=== PATIENT | female | born 1970 | race African-American/Black ===

== ENCOUNTER 2016-09-10 11:32 | Inpatient (IN) | payer MEDICARE, MEDICAID, OTHER ==
[~2016-09-10] VITALS: Ht 157.5 cm; Wt 50.4 kg
[2016-09-10] VITALS (13 sets, daily range): BP systolic 81–110; BP diastolic 58–79; PULSE 81–148; RESP 16–20; TEMP 98–103; O2SAT 98–100
[~2016-09-10 11:32] MED LIST: CALTRATE PO; PRIN5TAB PO; RITO100 PO; SELZENTRY PO; TRUV200300 PO; [UNRECOGNIZED DRUG - OTHER] PO
[2016-09-10] MEDS ORDERED: SODIUM CHLOR 0.9% 1000 ML INJ 1,000 ML IV SCH (12:09)
[2016-09-10] MEDS ORDERED: PROP10TA6 PO (12:10)
[2016-09-10] MEDS ORDERED: CALCTAB33 PO (12:10)
[2016-09-10] MEDS ORDERED: FERR325T PO (12:10)
[2016-09-10] MEDS ORDERED: [UNRECOGNIZED DRUG - OTHER] PO (12:10)
[2016-09-10] MEDS ORDERED: ONDANSETRON HCL 4 MG/2 ML VIAL IVP ONE (12:15)
[2016-09-10] MEDS ORDERED: SODIUM CHLORIDE 0.9% FLUSH 5 ML FLUSH IVF PRN (12:15)
[2016-09-10] MEDS ORDERED: MORPHINE SULFATE 4 MG/ML INJ IV PUSH ONE (12:15)
[2016-09-10 12:27] LABS: AUTOMATED NEUTROPHIL # 13.5 TH/MM3 (1.8-7.7); EOSINOPHIL % 0.3 % (0.0-4.0); LYMPH % 7.4 % (9.0-44.0); LYMPHOCYTE # 1.1 TH/MM3 (1.0-4.8); MEAN CELL VOLUME 88.2 FL (80.0-100.0); MEAN CORPUSCULAR HEMOGLOBIN 29.2 PG (27.0-34.0); MEAN CORPUSCULAR HGB CONC 33.1 % (32.0-36.0); NEUT % 86.3 % (16.0-70.0); PLATELET COUNT 143 TH/MM3 (150-450); RED BLOOD COUNT 3.74 MIL/MM3 (4.00-5.30); RED CELL DISTRIBUTION WIDTH 13.4 % (11.6-17.2); WHITE BLOOD COUNT 15.5 TH/MM3 (4.0-11.0)
[2016-09-10 12:28] LABS: HEMO FLAGS DIFF FINAL
[2016-09-10] MEDS ORDERED: KETOROLAC TROMETHAMINE 30 MG/ML (IVP) VIAL IV PUSH ONE (12:30)
[2016-09-10] MEDS ORDERED: SODIUM CHLOR 0.9% 1000 ML INJ 1,000 ML IV ONE (12:30)
[2016-09-10] MEDS ORDERED: ACETAMINOPHEN 650 MG/20.3 ML UDC PO ONE (12:30)
[2016-09-10 12:37] LABS: CHLORIDE 97 MEQ/L (98-107); SODIUM (NA) 131 MEQ/L (136-145)
[2016-09-10 12:41] LABS: ANION GAP 12 MEQ/L (5-15); APTT (PATIENT) 31.9 SEC (24.3-30.1); BICARBONATE 22.3 MEQ/L (21.0-32.0); BLOOD UREA NITROGEN 39 MG/DL (7-18); PROTHROMBIN TIME - PATIENT 11.2 SEC (9.8-11.6)
[2016-09-10 12:42] LABS: POTASSIUM 4.6 MEQ/L (3.5-5.1)
[2016-09-10 12:43] LABS: ALT (GPT) 75 U/L (10-53); AST (GOT) 72 U/L (15-37)
[2016-09-10 12:44] LABS: GLOMERULAR FILTRATION RATE 25 ML/MIN (>89)
[2016-09-10 12:45] LABS: TOTAL BILIRUBIN ADULT 2.1 MG/DL (0.2-1.0)
[2016-09-10] MEDS ORDERED: AZTREONAM INJ 1,000 MG in SODIUM CHLORIDE 0.9% INJ 100 ML IV ONE (12:45)
[2016-09-10] MEDS ORDERED: VANCOMYCIN INJ 1,000 MG in SODIUM CHLOR 0.9% 250 ML INJ 250 ML IV ONE (12:45)
[2016-09-10 12:46] LABS: ALKALINE PHOSPHATASE 152 U/L (45-117)
--- NOTE | 2016-09-10 13:32 | PD ---
HPI Chief Complaint: GI Complaint Time Seen by Provider: 12:02 Travel History International Travel<30 days: No Contact w/Intl Traveler<30days: No Traveled to known affect area: No History of Present Illness HPI 45yo F with PMH of HIV on HAART but unknown CD 4 count presents to the ED with c /o left sided abdominal pain that radiates to the back. +Dark urine. +Fever. Had vomiting yesterday. +Nonbloody diarrhea. Denies any chest pain, sob, focal weakness or numbness, hematuria, dysuria. PFSH Past Medical History Arthritis: No Asthma: No Autoimmune Disease: Yes (HIV) Blood Disorders: No Anxiety: Yes Depression: Yes Heart Rhythm Problems: No Cancer: No Cardiovascular Problems: Yes High Cholesterol: No Chemotherapy: No Chest Pain: No Congestive Heart Failure: No COPD: No Cerebrovascular Accident: No Diabetes: No Diminished Hearing: No Endocrine: No GERD: No Glaucoma: No Genitourinary: No Headaches: Yes Hepatitis: No Hiatal Hernia: No Hypertension: No Immune Disorder: No Kidney Stones: No Musculoskeletal: Yes Neurologic: Yes Psychiatric: No Reproductive: No Respiratory: Yes Migraines: Yes Myocardial Infarction: No Radiation Therapy: No Renal Failure: No Seizures: No Sickle Cell Disease: No Sleep Apnea: No Thyroid Disease: No Ulcer: No Tetanus Vaccination: > 5 Years Influenza Vaccination: Yes ?: Not Past Surgical History Abdominal Surgery: No AICD: No Appendectomy: No Arteriovenous Shunt: No Cardiac Surgery: No Section: Yes Cholecystectomy: No Ear Surgery: No Endocrine Surgery: No Eye Surgery: No Genitourinary Surgery: No Gynecologic Surgery: Yes (c section) Insulin Pump: No Joint Replacement: No Oral Surgery: No Pacemaker: No Thoracic Surgery: No Other Surgery: Yes (c section) Social History Alcohol Use: No Tobacco Use: Yes Substance Use: No Allergies-Medications (Allergen,Severity, Reaction): Coded Allergies: Penicillin (Verified Allergy, Severe, Hives, 09/10/16) Sulfa (Verified Allergy, Severe, HIVES, 09/10/16) Vancomycin (Verified Allergy, Severe, Itching, 09/10/16) Reported Meds & Prescriptions Reported Meds & Active Scripts Active Reported [Trivmeq] 1 Tab PO BID Ferrous Sulfate 325 Mg Tab 325 Mg PO DAILY Propranolol (Propranolol HCl) 10 Mg Tab 10 Mg PO DAILY Calcium 600+D Plus Minerals (Calcium Carbonate-Vitamin D W/Minerals) 600-400 Mg- Unit Tab 1 Tab PO BID Review of Systems Except as stated in HPI: all other systems reviewed are Neg Physical Exam Narrative GENERAL: 45yo F in moderate distress. SKIN: Warm and dry. HEAD: Atraumatic. Normocephalic. EYES: Pupils equal and round. No scleral icterus. No injection or drainage. ENT: No nasal bleeding or discharge. Mucous membranes pink and moist. NECK: Trachea midline. No JVD. CARDIOVASCULAR: Regular rate and rhythm. No murmur appreciated. RESPIRATORY: No accessory muscle use. Clear to auscultation. Breath sounds equal bilaterally. GASTROINTESTINAL: Abdomen soft, +TTP diffusely. Nondistended. MUSCULOSKELETAL: No obvious deformities. No clubbing. No cyanosis. No edema. BACK: +CVA tenderness bilaterally. NEUROLOGICAL: Awake and alert. No obvious cranial nerve deficits. Motor grossly within normal limits. Normal speech. PSYCHIATRIC: Appropriate mood and affect; insight and judgment normal. Data Data Last Documented VS Vital Signs Date Time Temp Pulse Resp B/P Pulse Ox O2 Delivery O2 Flow Rate FiO2 09/10/16 14:40 98.9 90 18 101/65 99 Room Air Orders Complete Blood Count With Diff (09/10/16 12:09) Comprehensive Metabolic Panel (09/10/16 12:09) Lipase (09/10/16 12:09) Prothrombin Time / Inr (Pt) (09/10/16 12:09) Act Partial Throm Time (Ptt) (09/10/16 12:09) Urinalysis - C+S If Indicated (09/10/16 12:09) Iv Access Insert/Monitor (09/10/16 12:09) Ecg Monitoring (09/10/16 12:09) Oximetry (09/10/16 12:09) Morphine Inj (Morphine Inj) (09/10/16 12:15) Ondansetron Inj (Zofran Inj) (09/10/16 12:15) Sodium Chlor 0.9% 1000 Ml Inj (Ns 1000 M (09/10/16 12:09) Sodium Chloride 0.9% Flush (Ns Flush) (09/10/16 12:15) Ed Urine Pregnancytest Poc (09/10/16 12:09) Lactic Acid Sepsis Protocol (09/10/16 12:20) Blood Culture (09/10/16 12:20) Sodium Chlor 0.9% 1000 Ml Inj (Ns 1000 M (09/10/16 12:30) Ketorolac Inj (Toradol Inj) (09/10/16 12:30) Acetaminophen 650 Mg/20 Ml Liq (Tylenol (09/10/16 12:30) Vancomycin Inj (Vancomycin Inj) (09/10/16 12:45) Aztreonam Inj (Azactam Inj) (09/10/16 12:45) Ct Abd/Pel W/O Iv Contrast (09/10/16 ) Bhcg Screen Qualitative (09/10/16 12:15) Diphenhydramine Inj (Benadryl Inj) (09/10/16 14:00) Urine Culture (09/10/16 14:35) Admit Order (Ed Use Only) (09/10/16 15:08) Labs Laboratory Tests Test 09/10/16 09/10/16 09/10/16 12:15 13:15 14:35 White Blood Count 15.5 TH/MM3 Red Blood Count 3.74 MIL/MM3 Hemoglobin 10.9 GM/DL Hematocrit 33.0 % Mean Corpuscular Volume 88.2 FL Mean Corpuscular Hemoglobin 29.2 PG Mean Corpuscular Hemoglobin 33.1 % Concent Red Cell Distribution Width 13.4 % Platelet Count 143 TH/MM3 Mean Platelet Volume 9.3 FL Neutrophils (%) (Auto) 86.3 % Lymphocytes (%) (Auto) 7.4 % Monocytes (%) (Auto) 6.0 % Eosinophils (%) (Auto) 0.3 % Basophils (%) (Auto) 0.0 % Neutrophils # (Auto) 13.5 TH/MM3 Lymphocytes # (Auto) 1.1 TH/MM3 Monocytes # (Auto) 0.9 TH/MM3 Eosinophils # (Auto) 0.0 TH/MM3 Basophils # (Auto) 0.0 TH/MM3 CBC Comment DIFF FINAL Differential Comment Prothrombin Time 11.2 SEC Prothromb Time International 1.0 RATIO Ratio Activated Partial 31.9 SEC Thromboplast Time Sodium Level 131 MEQ/L Potassium Level 4.6 MEQ/L Chloride Level 97 MEQ/L Carbon Dioxide Level 22.3 MEQ/L Anion Gap 12 MEQ/L Blood Urea Nitrogen 39 MG/DL Creatinine 2.50 MG/DL Estimat Glomerular Filtration 25 ML/MIN Rate Random Glucose 164 MG/DL Calcium Level 8.3 MG/DL Total Bilirubin 2.1 MG/DL Aspartate Amino Transf 72 U/L (AST/SGOT) Alanine Aminotransferase 75 U/L (ALT/SGPT) Alkaline Phosphatase 152 U/L Total Protein 9.0 GM/DL Albumin 2.8 GM/DL Lipase 164 U/L Beta HCG, Qualitative LESS THAN 1 MIU/ML Lactic Acid Level 1.7 mmol/L Urine Collection Type CLEAN CATCH Urine Color YELLOW Urine Turbidity MOD Urine pH 6.0 Urine Specific [place] 1.012 Urine Protein 100 mg/dL Urine Glucose (UA) NEG mg/dL Urine Ketones NEG mg/dL Urine Occult Blood MOD Urine Nitrite POS Urine Bilirubin NEG Urine Leukocyte Esterase LARGE Urine RBC 25-49 /hpf Urine WBC INNUM /hpf Urine Squamous Epithelial > 8 /hpf Cells Urine Bacteria FEW /hpf Microscopic Urinalysis Comment CULTURE INDICATED Urine Collection Time 14:35 MDM Medical Decision Making Medical Screen Exam Complete: Yes Emergency Medical Condition: Yes Differential Diagnosis Cholangitis vs. pyelonephritis vs. nephrolithiasis vs. colitis Narrative Course 45yo F with HIV here with fever and tachycardia and abdominal pain. Pt also with diarrhea but has not vomited since yesterday. Pt states pain is mainly left sided but diffusely tender on abdominal exam. Labs reviewed, leukocytosis at 15.5. H/H low at 10.9/33 but pt has had low H/H before. LFTs elevated with elevated bilirubin. Lipase normal. Lactic acid 1.7. Creatinine elevated at 2.50 from baseline of 0.87 from 2011. Pt given NS IVF x3 and empirically given vancomycin and aztreonam. Pt started having itching half way through vancomycin so it was stopped and diphenhydramine 50mg IV given. Pt reevaluated at bedside and denies any sob, chest pain, tongue or lip swelling. No urticaria. Pt given toradol and zofran which helped with the pain. UA showed large leukocyte and positive nitrite. CTa/p showed mild hydronephrotic changes around right kidney with medullary nephrocalcinosis. Exam suggest recent stone passage versus pyelonephritis. Pt reevaluated at bedside and feels better. Pt is no longer febrile and HR has decreased to 90bpm. Will admit pt for sepsis secondary to pyelonephritis with acute kidney injury. Discussed with [facility] hospitalist and admitted to Dr. Kay. Critical Care Narrative Aggregate critical care time was 40 minutes. Time to perform other separately billable procedures was not included in the critical care time. My time did not include minutes spent treating any other patients simultaneously or on activities that did not directly contribute to the patient's treatment. The services I provided to this patient were to treat and/or prevent clinically significant deterioration that could result in: cardiovascular collapse or . I provided critical care services requiring my management, as noted below: Chart data review, documentation time, medication orders and management, vital sign assessments/reviewing monitor data, ordering and reviewing lab tests, ordering and interpreting/reviewing x-rays and diagnostic studies, care of the patient and discussion of the patient with the admitting physicians. Sepsis Criteria SIRS Criteria (2 or more): Temp > 100.9 or < 96.8, Heart rate over 90, WBC > 44778, < 4000 or > 10% bands Sepsis Criteria (SIRS+source): Infect source susp/known Severe Sepsis (+one): Acute Oliguria/Renal Failure Diagnosis Primary Impression: Severe sepsis Admitting Information Admitting Physician Requests: Candida Matamoros DO Sep 10, 2016 13:32
[2016-09-10 13:35] LABS: BHCG SCREEN QUALITATIVE LESS THAN 1 MIU/ML (0-5)
[2016-09-10] MEDS ORDERED: diphenhydrAMINE HCL 50 MG/ML VIAL IV PUSH ONE (14:00)
--- NOTE | 2016-09-10 14:44 | RADHPO ---
EXAM DATE/TIME: 09/10/2016 14:17 [place] COMPARISON: No previous studies available for comparison. INDICATIONS : Non-specific abdominal pain with diarrhea and vomiting. ORAL CONTRAST: No oral contrast ingested. RADIATION DOSE: 4.64 CTDIvol (mGy) MEDICAL HISTORY : None SURGICAL HISTORY : section. ENCOUNTER: Initial ACUITY: 1 day PAIN SCALE: 4/10 LOCATION: abdomen/pelvis TECHNIQUE: Volumetric scanning of the abdomen and pelvis was performed. Using automated exposure control and ad justment of the mA and/or kV according to patient size, radiation dose was kept as low as reasonably achievable to obtain optimal diagnostic quality images. FINDINGS: Imaging through the lung base demonstrates a very minimal pericardial effusion. The pulmonary parench yma is clear. There is minimal pleural thickening at the left lung base. The appearance of the liver, spleen and pancreas is within normal limits by noncontrast CT imaging. Right kidney/ureter: The examination demonstrates calcification of the renal papilla suggesting some degree of medullary n ephrocalcinosis. There are punctate renal stones within the collecting system as well. The right uret er is dilated proximally. There is minimal prominence of the collecting system and subtle inflammator y changes around the left kidney. I do not see a stone evident within the ureter. Findings would be c oncerning for either recent stone passage versus pyelonephritis. Left kidney/ureter: The exam again demonstrates punctate calcifications within the collecting system and subtle calcifica tion the renal papilla. There is no hydronephrosis. No definite stones are seen within the left urete r.There is no free fluid within the pelvis. No iliac or inguinal adenopathy is seen. No stones are ev ident within the bladder. The visualized loops of small and large bowel are unremarkable. No free air or free fluid is identifi ed. CONCLUSION: 1. Mild hydronephrotic change in the right kidney with medullary nephrocalcinosis. There are inflamma tory changes around the right kidney with prominence of the proximal ureter though no definite stone is seen within the ureter. Exam which suggest recent stone passage versus pyelonephritis. 2. Subtle medullary calcification of the left kidney. No definite stones seen within the left ureter. Daniel Douglas MD on September 10, 2016 at 14:30 Board Certified Radiologist. This report was verified electronically.
[2016-09-10 14:47] LABS: GLUCOSE,URINE NEG (NEG); KETONE, URINE NEG (NEG)
[2016-09-10 14:52] LABS: BLOOD, URINE MOD (NEG); NITRITE,URINE POS (NEG)
[2016-09-10 14:53] LABS: METHOD OF COLLECTION CLEAN CATCH; URINE COLOR YELLOW (YELLW/STRAW); WBC, URINE INNUM /hpf (0-5)
[2016-09-10 14:54] LABS: BACTERIA, URINE FEW /hpf; COMMENT (UR) CULTURE INDICATED; CULTURE IF INDICATED CULTURE INDICATED; SQUAMOUS EPITHELIAL CELL URINE > 8 /hpf (0-5)
[2016-09-10] MEDS ORDERED: NALOXONE HCL 0.4 MG/ML AMP IV PRN (15:15)
[2016-09-10] MEDS ORDERED: SODIUM CHLORIDE 0.9% FLUSH 5 ML FLUSH FLUSH PRN (15:15)
[2016-09-10] MEDS ORDERED: ONDANSETRON HCL 4 MG/2 ML VIAL IVP PRN (15:15)
[2016-09-10] MEDS: HEPARIN SODIUM - SQ 10,000 UNITS/ML VIAL SQ SCH (15:34)
[2016-09-10] MEDS: SODIUM CHLOR 0.9% 1000 ML INJ 1,000 ML IV SCH ×2 (15:34→22:03)
[2016-09-10] MEDS: ACETAMINOPHEN 325 MG TAB PO PRN (20:29)
[2016-09-10] MEDS ORDERED: LAMIVUDINE PO SCH (21:00)
[2016-09-10] MEDS ORDERED: ABACAVIR PO SCH (21:00)
[2016-09-10] MEDS: PROPRANOLOL HCL 10 MG TAB PO SCH (21:00)
[2016-09-10] MEDS ORDERED: DOLUTEGRAVIR PO SCH (21:00)
--- NOTE | 2016-09-10 21:40 | MH ---
cc: BOY BROOKS MD DATE OF ADMISSION 09/10/2016 CHIEF COMPLAINT Abdominal pain. HISTORY OF PRESENT ILLNESS This is a 45-year-old -Italian female with a past medical history significant for HIV on HAART therapy. She is saying she is taking the medical off and on, not on regular basis. Came to the ER complaining of left-sided abdominal pain that radiates to the back. She had some dark urine and some fever. Had vomiting yesterday but not today. No bloody diarrhea. Denies any chest pain, shortness of breath. Denies any focal weakness, numbness, hematuria, dysuria or any urinary frequency, burning urination. She has a history of anxiety, depression. Other than that nothing significant. She also history of in the past. Other than that nothing significant. PAST MEDICAL AND SURGICAL HISTORY As dictated above. SOCIAL HISTORY Denies drinking. Smokes on a daily basis. Lives at home. She is on disability. FAMILY HISTORY Nothing significant. ALLERGIES PENICILLIN AND SULFA. MEDICATIONS Include: 1. Ferrous sulfate 325 mg p.o. daily. 2. Propranolol 10 mg p.o. daily. 3. Calcium with vitamin D p.o. b.i.d. REVIEW OF SYSTEMS Positive for abdominal pain. All other review of systems are negative. PHYSICAL EXAMINATION GENERAL: This is a 45-year female laying on the bed, not in acute distress. VITAL SIGNS: Temperature 98.0, heart rate 81, respiration 20, blood pressure 101/65, O2 saturation 100% on room air. HEENT: Normocephalic, atraumatic. EOMI. Pupils equal, round, reactive to light. Oral mucosa moist. NECK: Supple. No visible thyromegaly or neck mass. Trachea central. CARDIOVASCULAR: Regular rate and rhythm. LUNGS: Respirations clear to auscultation bilaterally. ABDOMEN: Soft, mild tenderness diffusely on palpation. Bowel sounds. EXTREMITIES: No cyanosis or clubbing. Full range of motion of all extremities. NEUROLOGICAL: Awake, alert, oriented x4. No focal deficits. PSYCHIATRIC: The patient is cooperative. Mood and affect is normal. LABORATORY DATA Include CBC is totally unremarkable except for WBC count 15.5 high. hemoglobin 10.9 low. Hematocrit 33.0. BMP totally unremarkable except for sodium 131 low. Chloride 97 low. BUN 39 high. Creatinine 2.50 high. GFR 25 low. Glucose 164 high. Lactic acid 1.7. calcium 8.3 low. bilirubin 2.1 high. AST 72, ALT 75 high. Alkaline phosphatase 152 high. Lipase 164. Beta-hCG qualitative negative less than 1. Urine examination showed innumerable wbc's in the urine. Large leukocyte esterase. Moderate occult blood. Nitrite positive. Leukocyte esterase positive. Culture indicated. Blood cultures x2 done negative so far. Urine culture done still pending. IMAGING CT abdomen and pelvis was done shows mild hypo nephrotic changes in both kidneys with medullary nephrocalcinosis. There are inflammatory changes around the right kidney with prominence of the proximal ureter though no definite stone is seen within the ureter. The examination which suggests a recent stone process versus pyelonephritis. Stable recalcification of the right, left kidney. No definitive stones seen within the left ureter. ASSESSMENT/PLAN 1. This is a 45-year female who came to the ER diagnosed with abdominal pain most likely secondary to a urinary tract infection/high LFTs. The patient is on aztreonam for infection in the urine. Urine culture that is pending. 2. Leukocytosis secondary to urinary tract infection. 3. Anemia secondary to ____ disease. 4. Hyponatremia. We will monitor sodium. 5. Renal failure / insufficiency. The patient is on IV fluid. We will monitor BUN, creatinine. Consult nephrology. 6. History of HIV. The patient is not taking the medicine regularly. The patient advised to take medicine regularly. 7. DVT prophylaxis with heparin 5000 units subcutaneous twice a day. 8. GI prophylaxis with Protonix 40 milligrams p.o. daily. 9. We are going manage the patient on a daily basis and make recommendations on a daily basis. Boy Brooks MD EA/FABIO /8:44 PM /9:13 PM
[2016-09-10] MEDS: CALCIUM/VITAMIN D 250 MG/125 U TAB PO SCH (22:01)
[2016-09-10] MEDS: FERROUS SULFATE 325 MG (65 MG ELEMENTAL IRON) TAB PO SCH (22:01)
[2016-09-10] MEDS: SODIUM CHLORIDE 0.9% FLUSH 5 ML FLUSH FLUSH SCH (22:03)
[2016-09-11] VITALS (9 sets, daily range): BP systolic 87–121; BP diastolic 59–82; PULSE 77–100; RESP 20; TEMP 98.4–101.4; O2SAT 97–100
[2016-09-11] MEDS: SODIUM CHLOR 0.9% 1000 ML INJ 1,000 ML IV SCH ×3 (00:53→09:11)
[2016-09-11] MEDS: AZTREONAM INJ 1,000 MG in SODIUM CHLORIDE 0.9% INJ 100 ML IV SCH ×2 (03:43→14:35)
[2016-09-11] MEDS: HEPARIN SODIUM - SQ 10,000 UNITS/ML VIAL SQ SCH ×2 (03:43→14:36)
[2016-09-11 06:06] LABS: AUTOMATED NEUTROPHIL # 13.6 TH/MM3 (1.8-7.7); BASOPHIL # 0.1 TH/MM3 (0-0.2); BASOPHIL % 0.4 % (0.0-2.0); EOSINOPHIL # 0.1 TH/MM3 (0-0.4); EOSINOPHIL % 0.5 % (0.0-4.0); LYMPHOCYTE # 1.6 TH/MM3 (1.0-4.8); MEAN CORPUSCULAR HEMOGLOBIN 30.1 PG (27.0-34.0); MEAN CORPUSCULAR HGB CONC 34.2 % (32.0-36.0); MONO % 6.4 % (0.0-8.0); NEUT % 82.7 % (16.0-70.0); PLATELET COUNT 143 TH/MM3 (150-450); RED CELL DISTRIBUTION WIDTH 13.8 % (11.6-17.2); WHITE BLOOD COUNT 16.4 TH/MM3 (4.0-11.0)
[2016-09-11 06:10] LABS: HEMO FLAGS AUTO DIFF
[2016-09-11] MEDS: ACETAMINOPHEN 325 MG TAB PO PRN ×2 (06:23→16:09)
[2016-09-11 06:33] LABS: ALKALINE PHOSPHATASE 133 U/L (45-117); ALT (GPT) 52 U/L (10-53); ANION GAP 9 MEQ/L (5-15); AST (GOT) 42 U/L (15-37); BICARBONATE 20.4 MEQ/L (21.0-32.0); BLOOD UREA NITROGEN 32 MG/DL (7-18); CHLORIDE 111 MEQ/L (98-107); GLOMERULAR FILTRATION RATE 33 ML/MIN (>89); POTASSIUM 4.3 MEQ/L (3.5-5.1); SODIUM (NA) 140 MEQ/L (136-145); TOTAL BILIRUBIN ADULT 1.5 MG/DL (0.2-1.0)
[2016-09-11 06:45] LABS: BANDS 10 % (0-6); EOSINOPHILS 1 % (0-4); NEUTROPHIL # MANUAL DIFF 14.1 TH/MM3 (1.8-7.7); POLYS (SEG NEUTROPHILS) 76 % (16-70); TARGET CELLS 2+ (NORMAL); WBC DIFF SAMPLE 100
[2016-09-11 06:46] LABS: PLATELET ESTIMATE SMEAR LOW (NORMAL); PLATELET MORPHOLOGY NORMAL (NORMAL); SCAN/DIFF AUTO DIFF CONFIRMED
--- NOTE | 2016-09-11 08:11 | HHI.PR ---
Subjective History of Present Illness Patient feel weak and tired no acute issue. blood and urine culture positive for UTI... On Abx per ID. Review of Systems Constitutional Constitutional: Fatigue, Weakness Vitals/Results Intake & Output 09/10/16 09/10/16 09/11/16 15:00 23:00 07:00 Intake Total 2000 ml 1240 ml 1640 ml Output Total 200 ml Balance 1800 ml 1240 ml 1640 ml Intake Oral 740 ml 240 ml IV Total 2000 ml 500 ml 1400 ml Output Urine Total 200 ml # Voids 1 2 1 # Bowel Movements 0 0 Vital Signs Vital Signs Date Time Temp Pulse Resp B/P Pulse Ox O2 Delivery O2 Flow Rate FiO2 09/11/16 06:24 101.3 09/11/16 04:00 101.3 99 20 121/82 100 09/11/16 00:00 98.9 87 20 87/59 98 09/10/16 22:00 100.9 09/10/16 20:30 98 09/10/16 20:00 102.3 118 20 110/79 98 09/10/16 19:34 99 21 09/10/16 17:39 98 21 09/10/16 16:50 98.0 81 20 98/71 100 09/10/16 16:11 83 17 101/65 98 Room Air 09/10/16 14:40 98.9 90 18 101/65 99 Room Air 09/10/16 13:23 100.5 108 17 104/61 98 Room Air 09/10/16 12:17 103.0 126 17 104/74 100 Room Air 09/10/16 12:16 100 Room Air 09/10/16 12:03 121 17 104/74 100 Room Air 09/10/16 11:44 103.0 148 16 81/58 99 CBC/BMP: 09/11/16 0513 09/11/16 0513 Lab Results Laboratory Tests Test 09/10/16 09/10/16 09/10/16 09/11/16 12:15 13:15 14:35 05:13 White Blood Count 15.5 TH/MM3 16.4 TH/MM3 Red Blood Count 3.74 MIL/MM3 3.40 MIL/MM3 Hemoglobin 10.9 GM/DL 10.2 GM/DL Hematocrit 33.0 % 30.0 % Mean Corpuscular Volume 88.2 FL 88.0 FL Mean Corpuscular Hemoglobin 29.2 PG 30.1 PG Mean Corpuscular Hemoglobin 33.1 % 34.2 % Concent Red Cell Distribution Width 13.4 % 13.8 % Platelet Count 143 TH/MM3 143 TH/MM3 Mean Platelet Volume 9.3 FL 9.8 FL Neutrophils (%) (Auto) 86.3 % 82.7 % Lymphocytes (%) (Auto) 7.4 % 10.0 % Monocytes (%) (Auto) 6.0 % 6.4 % Eosinophils (%) (Auto) 0.3 % 0.5 % Basophils (%) (Auto) 0.0 % 0.4 % Neutrophils # (Auto) 13.5 TH/MM3 13.6 TH/MM3 Lymphocytes # (Auto) 1.1 TH/MM3 1.6 TH/MM3 Monocytes # (Auto) 0.9 TH/MM3 1.0 TH/MM3 Eosinophils # (Auto) 0.0 TH/MM3 0.1 TH/MM3 Basophils # (Auto) 0.0 TH/MM3 0.1 TH/MM3 CBC Comment DIFF FINAL AUTO DIFF Differential Comment AUTO DIFF CONFIRMED Prothrombin Time 11.2 SEC Prothromb Time International 1.0 RATIO Ratio Activated Partial 31.9 SEC Thromboplast Time Sodium Level 131 MEQ/L 140 MEQ/L Potassium Level 4.6 MEQ/L 4.3 MEQ/L Chloride Level 97 MEQ/L 111 MEQ/L Carbon Dioxide Level 22.3 MEQ/L 20.4 MEQ/L Anion Gap 12 MEQ/L 9 MEQ/L Blood Urea Nitrogen 39 MG/DL 32 MG/DL Creatinine 2.50 MG/DL 2.00 MG/DL Estimat Glomerular Filtration 25 ML/MIN 33 ML/MIN Rate Random Glucose 164 MG/DL 87 MG/DL Calcium Level 8.3 MG/DL 7.6 MG/DL Total Bilirubin 2.1 MG/DL 1.5 MG/DL Aspartate Amino Transf 72 U/L 42 U/L (AST/SGOT) Alanine Aminotransferase 75 U/L 52 U/L (ALT/SGPT) Alkaline Phosphatase 152 U/L 133 U/L Total Protein 9.0 GM/DL 7.6 GM/DL Albumin 2.8 GM/DL 2.4 GM/DL Lipase 164 U/L Beta HCG, Qualitative LESS THAN 1 MIU/ML Lactic Acid Level 1.7 mmol/L Urine Collection Type CLEAN CATCH Urine Color YELLOW Urine Turbidity MOD Urine pH 6.0 Urine Specific [place] 1.012 Urine Protein 100 mg/dL Urine Glucose (UA) NEG mg/dL Urine Ketones NEG mg/dL Urine Occult Blood MOD Urine Nitrite POS Urine Bilirubin NEG Urine Leukocyte Esterase LARGE Urine RBC 25-49 /hpf Urine WBC INNUM /hpf Urine Squamous Epithelial > 8 /hpf Cells Urine Bacteria FEW /hpf Microscopic Urinalysis Comment CULTURE INDICATED Urine Collection Time 14:35 Differential Total Cells 100 Counted Neutrophils % (Manual) 76 % Band Neutrophils % 10 % Lymphocytes % 9 % Monocytes % 4 % Eosinophils % 1 % Neutrophils # (Manual) 14.1 TH/MM3 Platelet Estimate LOW Platelet Morphology Comment NORMAL Target Cells 2+ Microbiology Microbiology 09/10/16 Aerobic Blood Culture, Received Pending 09/10/16 Anaerobic Blood Culture, Received Pending 09/10/16 Aerobic Blood Culture, Received Pending 09/10/16 Anaerobic Blood Culture, Received Pending 09/10/16 Urine Culture, Received Pending Physical Exam General General Appearance: No Acute Distress, Comfortable Eyes Eye Exam: Pupils Equal, Pupils Reactive, Sclera White, Extraocular Movement Intact Throat Throat Exam: Oral Mucosa [place] & Moist Neck Neck Exam: Neck Supple, Trachea Midline Pulmonary Resp Exam: Clear Bilaterally, Breath Sounds Equal, No Distress Cardiology CV Exam: Regular, Normal Sinus Rhythm Gastrointestinal/Abdomen GI Exam: Soft, Bowel Sounds Present Musculoskeletal MS Exam: Normal Tone Integumentary Skin Exam: Clear, Warm, Dry, Intact, Normal Turgor Neurologic Neuro Exam: Alert, Awake, Oriented, Speech Clear, Moving All Extremities, No Focal Deficits VTE Prophylaxis VTE Prophylaxis Meds: Heparin PUD Prophylasis PUD Prophylaxis: Protonix Assessment/Plan Assessment/Plan ASSESSMENT/PLAN 1. This is a 45-year female who came to the ER diagnosed with abdominal pain most likely secondary to a urinary tract infection/high LFTs. The patient is on aztreonam for infection in the urine. Urine culture positive for E. Coli. 2. Leukocytosis secondary to urinary tract infection. 3. Anemia secondary to chronic medical condition and renal failure. 4. Hyponatremia. We will monitor sodium. 5. Renal failure / insufficiency. The patient is on IV fluid. We will monitor BUN, creatinine. Consult nephrology. 6. History of HIV. The patient is not taking the medicine regularly. The patient advised to take medicine regularly. 7. DVT prophylaxis with heparin 5000 units subcutaneous twice a day. 8. GI prophylaxis with Protonix 40 milligrams p.o. daily. 9. Sepsis on admission blood culture positive for E. Coli on ABX per ID Recommendation. We are going manage the patient on a daily basis and make recommendations on a daily basis. Discussed Condition with: Patient Boy Kay MD Sep 11, 2016 08:11
[2016-09-11] MEDS: FERROUS SULFATE 325 MG (65 MG ELEMENTAL IRON) TAB PO SCH (09:00)
[2016-09-11] MEDS: SODIUM CHLORIDE 0.9% FLUSH 5 ML FLUSH FLUSH SCH ×2 (09:00→20:33)
[2016-09-11] MEDS: PROPRANOLOL HCL 10 MG TAB PO SCH (09:00)
[2016-09-11] MEDS: DOLUTEGRAVIR SODIUM 50 MG TAB PO SCH (09:10)
[2016-09-11] MEDS: CALCIUM/VITAMIN D 250 MG/125 U TAB PO SCH ×2 (09:10→20:32)
[2016-09-11] MEDS: ABACAVIR SULFATE 300 MG TAB PO SCH (09:10)
--- NOTE | 2016-09-11 12:23 | PD.CONS ---
HPI Service Nephrology Consult Requested By Reason for Consult KARLI, pyelonephritis Primary Care Physician Shashank Thacker III, MD History of Present Illness This is a 45 y/o AAF pt who came to ER for dysuria, flank pain, and nausea/ vomiting. PMH of HIV, she is on HAART but has been noncompliant of recent. On arrival she is in renal failure, with creatinine of 2.5 that has improved to 2.0 with IVF. BUN is 37 today. There are no recent labs for comparison, but several years ago her renal function was normal. She is febrile. UA with significant UTI, CT without contrast showing mild hydronephrotic change with medullary calcinosis and inflammation on right suggesting pyelonephritis vs. stone passage. She is non oliguric. Blood cx positive in 4/4 bottles with GNR. She is on Vancomycin and Aztreonam.ID has been consulted. She is awake, in no distress. No evidence of fluid overload. She was given a dose of Toradol since admission. She is a full code. We were consulted for management. (Chasity Rivers) Review of Systems Constitutional: COMPLAINS OF: Fatigue, Fever, Chills Gastrointestinal: COMPLAINS OF: Abdominal pain, Diarrhea, Nausea, Vomiting Genitourinary: COMPLAINS OF: Dysuria, DENIES: Abnormal vaginal bleeding ( Chasity Rivers) Past Family Social History Allergies: Coded Allergies: Penicillin (Verified Allergy, Severe, Hives, 09/10/16) Sulfa (Verified Allergy, Severe, HIVES, 09/10/16) Vancomycin (Verified Allergy, Severe, Itching, 09/10/16) Past Medical History HIV on HAART, diagnosed in anxiety depression anemia Past Surgical History C section Reported Medications unsure of HIV meds takes iron daily Active Ordered Medications Current Medications Medications (Trade) Dose Ordered Sig/Frank Route Start Time Stop Time Status Last Admin (NS 1000 ml Inj) 1,000 ml @ 100 mls/hr Q10H IV 09/10/16 15:08 09/11/16 00:53 (NS Flush) 2 ml UNSCH PRN FLUSH 09/10/16 15:15 (NS Flush) 2 ml BID FLUSH 09/10/16 21:00 09/10/16 22:03 (Tylenol) 650 mg Q4H PRN PO 09/10/16 15:15 09/11/16 06:23 (Zofran Inj) 4 mg Q6H PRN IVP 09/10/16 15:15 (Heparin Inj) 5,000 units Q12H SQ 09/10/16 16:00 09/11/16 03:43 Naloxone HCl 0.4 mg 0.4 mg UNSCH PRN IV 09/10/16 15:15 (Azactam Inj/NS Inj) 100 ml @ 200 mls/hr Q12H IV 09/11/16 03:00 09/11/16 03:43 (Ferrous Sulfate) 325 mg DAILY PO 09/10/16 21:00 09/11/16 09:00 (Inderal) 10 mg DAILY PO 09/10/16 21:00 09/11/16 09:00 Calcium/Vitamin D 500 mg 500 mg BID PO 09/10/16 21:00 09/11/16 09:10 (NS 1000 ml Inj) 1,000 ml @ 100 mls/hr Q10H IV 09/10/16 21:00 09/11/16 09:09 (Ziagen) 600 mg DAILY PO 09/11/16 09:00 09/11/16 09:10 (Epivir) 300 mg DAILY PO 09/11/16 09:00 09/11/16 09:10 Family History NO hx of renal disorders Social History former smoker denies ETOH single, lives with children unemployed independent full code (Chasity Rivers) Physical Exam Vital Signs Vital Signs Date Time Temp Pulse Resp B/P Pulse Ox O2 Delivery O2 Flow Rate FiO2 09/11/16 11:42 97 97 09/11/16 08:00 100.1 95 20 101/69 99 09/11/16 06:24 101.3 09/11/16 04:00 101.3 99 20 121/82 100 09/11/16 00:00 98.9 87 20 87/59 98 09/10/16 22:00 100.9 09/10/16 20:30 98 09/10/16 20:00 102.3 118 20 110/79 98 09/10/16 19:34 99 21 09/10/16 17:39 98 21 09/10/16 16:50 98.0 81 20 98/71 100 09/10/16 16:11 83 17 101/65 98 Room Air 09/10/16 14:40 98.9 90 18 101/65 99 Room Air 09/10/16 13:23 100.5 108 17 104/61 98 Room Air 09/10/16 12:17 103.0 126 17 104/74 100 Room Air 09/10/16 12:16 100 Room Air Physical Exam Young thin AAF lying in bed awake/alert, no neuro deficit S1/S2, RRR no murmurs lungs clear Abd: soft, non tender, normal bowel sounds Ext: no edema Laboratory Laboratory Tests Test 09/10/16 09/10/16 09/10/16 09/11/16 12:15 13:15 14:35 05:13 White Blood Count 15.5 16.4 Red Blood Count 3.74 3.40 Hemoglobin 10.9 10.2 Hematocrit 33.0 30.0 Mean Corpuscular Volume 88.2 88.0 Mean Corpuscular Hemoglobin 29.2 30.1 Mean Corpuscular Hemoglobin 33.1 34.2 Concent Red Cell Distribution Width 13.4 13.8 Platelet Count 143 143 Mean Platelet Volume 9.3 9.8 Neutrophils (%) (Auto) 86.3 82.7 Lymphocytes (%) (Auto) 7.4 10.0 Monocytes (%) (Auto) 6.0 6.4 Eosinophils (%) (Auto) 0.3 0.5 Basophils (%) (Auto) 0.0 0.4 Neutrophils # (Auto) 13.5 13.6 Lymphocytes # (Auto) 1.1 1.6 Monocytes # (Auto) 0.9 1.0 Eosinophils # (Auto) 0.0 0.1 Basophils # (Auto) 0.0 0.1 CBC Comment DIFF FINAL AUTO DIFF Differential Comment AUTO DIFF CONFIRMED Prothrombin Time 11.2 Prothromb Time International 1.0 Ratio Activated Partial 31.9 Thromboplast Time Sodium Level 131 140 Potassium Level 4.6 4.3 Chloride Level 97 111 Carbon Dioxide Level 22.3 20.4 Anion Gap 12 9 Blood Urea Nitrogen 39 32 Creatinine 2.50 2.00 Estimat Glomerular Filtration 25 33 Rate Random Glucose 164 87 Calcium Level 8.3 7.6 Total Bilirubin 2.1 1.5 Aspartate Amino Transf 72 42 (AST/SGOT) Alanine Aminotransferase 75 52 (ALT/SGPT) Alkaline Phosphatase 152 133 Total Protein 9.0 7.6 Albumin 2.8 2.4 Lipase 164 Beta HCG, Qualitative LESS THAN 1 Lactic Acid Level 1.7 Urine Collection Type CLEAN CATCH Urine Color YELLOW Urine Turbidity MOD Urine pH 6.0 Urine Specific [place] 1.012 Urine Protein 100 Urine Glucose (UA) NEG Urine Ketones NEG Urine Occult Blood MOD Urine Nitrite POS Urine Bilirubin NEG Urine Leukocyte Esterase LARGE Urine RBC 25-49 Urine WBC INNUM Urine Squamous Epithelial > 8 Cells Urine Bacteria FEW Microscopic Urinalysis Comment CULTURE INDICATED Urine Collection Time 14:35 Differential Total Cells 100 Counted Neutrophils % (Manual) 76 Band Neutrophils % 10 Lymphocytes % 9 Monocytes % 4 Eosinophils % 1 Neutrophils # (Manual) 14.1 Platelet Estimate LOW Platelet Morphology Comment NORMAL Target Cells 2+ Date/Time Procedure Status Source Growth 09/10/16 14:35 Urine Culture Received Urine Clean Catch Pending 09/10/16 12:15 Aerobic Blood Culture - Preliminary Resulted Blood Peripheral Gram Negative Mohan 09/10/16 12:15 Anaerobic Blood Culture - Preliminary Resulted Gram Negative Mohan (Chasity Rivers) Result Diagram: 09/11/16 0513 09/11/16 0513 Imaging Last 48 hours Impressions Abdomen/Pelvis CT 09/10/16 0000 Signed Impressions: Service Date/Time: Thursday, September 10, 2016 14:17 - CONCLUSION: 1. Mild hydronephrotic change in the right kidney with medullary nephrocalcinosis. There are inflammatory changes around the right kidney with prominence of the proximal ureter though no definite stone is seen within the ureter. Exam which suggest recent stone passage versus pyelonephritis. 2. Subtle medullary calcification of the left kidney. No definite stones seen within the left ureter. Daniel Douglas MD (Chasity Rivers) Assessment and Plan Problem List: (1) KARLI (acute kidney injury) Plan: In a pt with normal renal function at baseline years ago non oliguric renal failure KARLI likely prerenal from decreased renal perfusion secondary to sepsis; may have progressed to ATN renal function improved with IVF. she has slight acidosis, change IVF to 1/2 NS with 50 mEq bicarb at 75 cc/hr K is normal continue present plan BP low-normal, she has not required pressors quantify proteinuria avoid nephrotoxins daily renal panel, urine output measurement (2) Severe sepsis Plan: 4/4 bottles with GNR BP acceptable, she is febrile with leukocytosis given Vancomycin and Aztreonam; await sensitivities on IVF, monitor clinically (3) UTI (urinary tract infection) Plan: await cultures ID consulted for Antibiotic management (4) HIV (human immunodeficiency virus infection) Plan: HAART restarted including Abacavir, Tivicay, and Epivir ID has been consulted (Chasity Rivers) Assessment and Plan KARLI likely due to pre-renal factors, improving with fluids. Avoid Toradol and other nephrotoxic agents. Agree with above assessment and plan. (Carlos Bowles MD) Problem Qualifiers (1) UTI (urinary tract infection): Chasity Rivers Sep 11, 2016 12:19 Carlos Bowles MD Sep 11, 2016 20:02
[2016-09-11] MEDS: SODIUM BICARBONATE 8.4% INJ 50 MEQ in SODIUM CHLOR 0.45% 1000 ML INJ 1,000 ML IV SCH (14:36)
--- NOTE | 2016-09-11 16:34 | PD.CONS ---
History of Present Illness Service ID CONSULT DR GONZALEZ Consult Requested By DR BROOKS Reason for Consult SEPSIS UROSEPSIS H/O HIV + Primary Care Physician Shashank Thacker III, MD Diagnoses: (1) UTI (urinary tract infection) (2) Severe sepsis (3) HIV (human immunodeficiency virus infection) (4) KARLI (acute kidney injury) History of Present Illness 45 Y/O FEMALE WITH HISTORY OF HIV AND NONCOMPLIANCE. SHE WAS ADM WITH [place] AND D[facility]UR[facility] THAT STARTED THURSDAY. SHE IS FOLLOWED BY DR WALL FOR HER HIV AND IS ON TRIUMEQ. SHE IS NONCOMPLIANT AND STATES SHE TAKES HER MEDS A FEW TIMES A WEEK. SHE HAD A CD4 OF 182 IN 2003, SHE IS UNSURE WHAT HER CD4 IS CURRENTLY. SHE HAS BEEN RUNNING FEVERS OFF AND ON SINCE ADM, DESPITE AZACTAM. SHE IS ALLERGIC TO PCN - RASH AND SULFA. (Maine Malcolm) History of Present Illness HIV positive since 1993 - not compliant with medicines - admitted with fever dysuria- has positive blood cultures. (Miladis Gonzalez MD) Review of Systems Constitutional: COMPLAINS OF: Fever, Chills, DENIES: Change in appetite Respiratory: DENIES: Cough Cardiovascular: DENIES: Chest pain Gastrointestinal: DENIES: Diarrhea Musculoskeletal: COMPLAINS OF: Muscle aches Psychiatric: DENIES: Anxiety (Maine Malcolm) Constitutional: COMPLAINS OF: Fever Respiratory: DENIES: Shortness of breath Musculoskeletal: DENIES: Back pain, Neck pain (Miladis Gonzalez MD) Past Family Social History Allergies: Coded Allergies: Penicillin (Verified Allergy, Severe, Hives, 09/10/16) Sulfa (Verified Allergy, Severe, HIVES, 09/10/16) Vancomycin (Verified Allergy, Severe, Itching, 09/10/16) Past Medical History Past Medical History HIV on HAART, diagnosed in anxiety depression anemia Past Surgical History Past Surgical History C section Reported Medications Reported Medications unsure of HIV meds/ TRIUMEQ takes iron daily Family History Past Family Social History Allergies: Coded Allergies: Penicillin (Verified Allergy, Severe, Hives, 09/10/16) Sulfa (Verified Allergy, Severe, HIVES, 09/10/16) Vancomycin (Verified Allergy, Severe, Itching, 09/10/16) Social History NO SMOKING / NO ETOH/ NO DRUG USE (Malcolm,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 SKIN: No rashes, ecchymoses or lesions.Warm and dry. HEAD: Atraumatic. Normocephalic. No temporal or scalp tenderness. EYES: Pupils equal round and reactive. Extraocular motions intact. No scleral icterus. No injection or drainage. ENT: Nose without bleeding, purulent drainage or septal hematoma. Throat without erythema, tonsillar hypertrophy or exudate. Uvula midline. Airway patent. NECK: Trachea midline. No JVD or lymphadenopathy. Supple, nontender, no meningeal signs. CARDIOVASCULAR: Regular rate and rhythm without murmurs, gallops, or rubs. RESPIRATORY: Clear to auscultation. Breath sounds equal bilaterally. No wheezes , rales, or rhonchi. GASTROINTESTINAL: Abdomen soft, non-tender, nondistended. No hepato-splenomegaly , or palpable masses. No guarding. MUSCULOSKELETAL: Extremities without clubbing, cyanosis, or edema. No joint tenderness, effusion, or edema noted. No calf tenderness. Negative Homans sign bilaterally. NEUROLOGICAL: Awake and alert. Cranial nerves II through XII intact. Motor and sensory grossly within normal limits. Five out of 5 muscle strength in all muscle groups. Normal speech. Laboratory Laboratory Tests Test 09/11/16 05:13 White Blood Count 16.4 Red Blood Count 3.40 Hemoglobin 10.2 Hematocrit 30.0 Mean Corpuscular Volume 88.0 Mean Corpuscular Hemoglobin 30.1 Mean Corpuscular Hemoglobin 34.2 Concent Red Cell Distribution Width 13.8 Platelet Count 143 Mean Platelet Volume 9.8 Neutrophils (%) (Auto) 82.7 Lymphocytes (%) (Auto) 10.0 Monocytes (%) (Auto) 6.4 Eosinophils (%) (Auto) 0.5 Basophils (%) (Auto) 0.4 Neutrophils # (Auto) 13.6 Lymphocytes # (Auto) 1.6 Monocytes # (Auto) 1.0 Eosinophils # (Auto) 0.1 Basophils # (Auto) 0.1 CBC Comment AUTO DIFF Differential Total Cells 100 Counted Neutrophils % (Manual) 76 Band Neutrophils % 10 Lymphocytes % 9 Monocytes % 4 Eosinophils % 1 Neutrophils # (Manual) 14.1 Differential Comment AUTO DIFF CONFIRMED Platelet Estimate LOW Platelet Morphology Comment NORMAL Target Cells 2+ Sodium Level 140 Potassium Level 4.3 Chloride Level 111 Carbon Dioxide Level 20.4 Anion Gap 9 Blood Urea Nitrogen 32 Creatinine 2.00 Estimat Glomerular Filtration 33 Rate Random Glucose 87 Calcium Level 7.6 Total Bilirubin 1.5 Aspartate Amino Transf 42 (AST/SGOT) Alanine Aminotransferase 52 (ALT/SGPT) Alkaline Phosphatase 133 Total Protein 7.6 Albumin 2.4 Date/Time Procedure Status Source Growth 09/10/16 14:35 Urine Culture - Preliminary Resulted Urine Clean Catch Gram Negative Mohan 09/10/16 12:15 Aerobic Blood Culture - Preliminary Resulted Blood Peripheral Gram Negative Mohan 09/10/16 12:15 Anaerobic Blood Culture - Preliminary Resulted Gram Negative Mohan (Maine Malcolm) Physical Exam Alert . oriented x 3 No thrush Chest clear Some tenderness in renal angle (Miladis Gonzalez MD) Result Diagram: 09/11/16 0513 09/11/[address] scan abd + pyelonephritis (Maine Malcolm) Assessment and Plan Problem List: (1) UTI (urinary tract infection) Status: Acute (2) HIV (human immunodeficiency virus infection) Status: Acute Plan: on tivacay / ziagen / epivir - plan to check cb4 subset/ viral load/ genotype and fu seen exam with Dr Gonzalez (3) KARLI (acute kidney injury) Status: Acute (4) Bacteremia due to Escherichia coli Status: Acute Plan: plan to dc azactam plan to start rocephin 1g iv q24h monitor cbc order 2d echo (Maine Malcolm) Problem List: (1) UTI (urinary tract infection) Status: Acute (2) HIV (human immunodeficiency virus infection) Status: Acute Plan: on tivacay / ziagen / epivir - plan to check cb4 subset/ viral load/ genotype and fu seen exam with Dr Gonzalez (3) KARLI (acute kidney injury) Status: Acute (4) Bacteremia due to Escherichia coli Status: Acute Plan: plan to dc azactam plan to start rocephin 1g iv q24h monitor cbc order 2d echo Assessment and Plan Above plan reviewed Patient advised compliace with HIV medicines (Miladis Gonzalez MD) Problem Qualifiers (1) UTI (urinary tract infection): [place] Malcolm Sep 11, 2016 16:34 Miladis Gonzalez MD Sep 11, 2016 22:05
[2016-09-11] MEDS: cefTRIAXone 1,000 MG/NS 100 ML IV SCH ×2 (17:51)
[2016-09-12] VITALS (7 sets, daily range): BP systolic 109–136; BP diastolic 78–95; PULSE 77–100; RESP 16–20; TEMP 98.4–100.5; O2SAT 74–100
[2016-09-12] MEDS: HEPARIN SODIUM - SQ 10,000 UNITS/ML VIAL SQ SCH ×2 (04:05→16:16)
[2016-09-12] MEDS: ACETAMINOPHEN 325 MG TAB PO PRN ×3 (04:05→23:57)
[2016-09-12 05:44] LABS: HEMATOCRIT 24.8 % (35.0-46.0); MEAN CELL VOLUME 87.8 FL (80.0-100.0); MEAN CORPUSCULAR HEMOGLOBIN 29.5 PG (27.0-34.0); MEAN CORPUSCULAR HGB CONC 33.7 % (32.0-36.0); PLATELET COUNT 154 TH/MM3 (150-450); RED BLOOD COUNT 2.82 MIL/MM3 (4.00-5.30); RED CELL DISTRIBUTION WIDTH 13.8 % (11.6-17.2); WHITE BLOOD COUNT 8.1 TH/MM3 (4.0-11.0)
[2016-09-12 05:49] LABS: POTASSIUM 3.7 MEQ/L (3.5-5.1)
[2016-09-12 05:51] LABS: HEMO FLAGS AUTO DIFF
[2016-09-12 06:05] LABS: BICARBONATE 22.4 MEQ/L (21.0-32.0); CALCIUM-PROTEIN CORRECTED 7.8 MG/DL (8.5-10.1); TOTAL BILIRUBIN ADULT 0.6 MG/DL (0.2-1.0)
[2016-09-12] MEDS: SODIUM BICARBONATE 8.4% INJ 50 MEQ in SODIUM CHLOR 0.45% 1000 ML INJ 1,000 ML IV SCH (06:12)
[2016-09-12 06:22] LABS: BANDS 5 % (0-6); NEUTROPHIL # MANUAL DIFF 6.3 TH/MM3 (1.8-7.7); POLYS (SEG NEUTROPHILS) 73 % (16-70); WBC DIFF SAMPLE 100
[2016-09-12 06:23] LABS: PLATELET ESTIMATE SMEAR NORMAL (NORMAL); PLATELET MORPHOLOGY NORMAL (NORMAL); SCAN/DIFF FINAL DIFF MANUAL; TARGET CELLS 3+ (NORMAL)
--- NOTE | 2016-09-12 08:02 | PQ ---
Physician Query Response Document PATIENT: RAYSHAWN MCCULLOUGH : 1970 ADMIT DATE: 09/10/2016 3:09 PM DISCH DATE: RESPONDING PROVIDER #: EAhmed QUERY TEXT: HIV Clarification and Associated Conditions HIV (Human immunodeficiency virus) is documented in the medical record. Please specify the type Such as: -- Symptomatic -- Asymptomatic -- With current or previous HIV-related condition (please specify related condition) -- Acquired immune deficiency syndrome [AIDS] -- HGJF-rhqqkbc-[id number] complex [ARC] -- Exposure to HIV -- Inconclusive serologic evidence of HIV -- Other, please specify Also please include any associated conditions, if applicable. The patient's Clinical Indicators include: 45yo F with PMH of HIV on HAART but unknown CD 4 count History of HIV. The patient is not taking the medicine regularly. The +Dark urine. +Fever. Had vomiting yesterday. +Nonbloody diarrhea. t 103 hr 148 bp 81/58 and abdominal pain blood cultures gram negative rods urine culture pending Query created by: Kristi Marshall on 09/11/2016 11:00 AM RESPONSE TEXT: Asymptomatic HIV. QUERY TEXT: Kidney Disease, Chronic CKD Stage renal failure is documented in the Medical Record. Please specify the disease stage (includes probab le or suspected) Such as: - Acute Renal Failure (Acute Kidney Injury)- -Acute on Chronic Renal Failure (please indicate CRF stage -- Chronic kidney disease Stage 1 -- Chronic kidney disease Stage 2 -- Chronic kidney disease Stage 3 -- Chronic kidney disease Stage 4 -- Chronic kidney disease Stage 5 -Acute tubular necrosis- -Acute papillary necrosis - Acute medullary necrosis - Other Specify - Unable to determine (Please explain) The patient's Clinical Indicators include: BUN 39, CUSTOMER SUPPLY COORDINATOR 2.50, GFR 25 CT mild hypo nephrotic changes in both kidneys with medullary nepjrocalcinosis. Inflammatory changes around right kidney prominence of prox ureter suggests recent stone process vs phylonephritis anemia of chronic disease hgb 10.9, hct 33, plt 143 Stages are defined by the [employer] as follows: CKD Stage I GFR >= 90 ml / min per 1.73 m2 and persistent albuminuria CKD Stage 2 GFR between 60 and 89 with persistent albuminuria CKD Stage 3 GFR between 30 and 59 CKD Stage 4 GFR between 15 and 29 CKD Stage 5 GFR between <15 or End Stage Renal Disease Query created by: Kristi Marshall on 09/11/2016 11:09 AM RESPONSE TEXT: UNABLE TO DETERMINE. QUERY TEXT: Sepsis Query Based on your medical judgement, can you further clarify the folowiin. Sepsis (SIRS due to an infection) 2. Sepsis with Organ Dysfunction 3. A localized Infection only 4. Another condition - please specify 5. Unable to determine - please explain. Depending on your selection above, please indicate one of the below if applicable: - Sepsis was present on Admission - Sepsis developed after admission The patient's Clinical Indicators include: T 103 HR 148 BP 81/58 WBC 15.5 IV FLUID BOLUS IV ANTIBIOTICS VANCOMYCIN AND AZACTAM GM NEGATIVE TEMI BLOOD CULTURES URINE CULTURE PENDING Query created by: Kristi Marshall on 09/11/2016 11:22 AM RESPONSE TEXT: SEPSIS ON ADMISSION DUE TO INFECTION. Electronically signed by: Boy Kay MD 09/12/2016 7:57 AM
--- NOTE | 2016-09-12 08:05 | HHI.PR ---
Subjective History of Present Illness Patient feel better no acute issue d/w RN Sara at bed side d/w vision care associate at bed side...ID Input noted. Review of Systems Constitutional Constitutional: Fatigue, Weakness Vitals/Results Intake & Output 09/11/16 09/11/16 09/12/16 15:00 23:00 07:00 Intake Total 800 ml 480 ml 1890 ml Balance 800 ml 480 ml 1890 ml Intake Oral 800 ml 480 ml 240 ml IV Total 1650 ml # Voids 4 3 2 # Bowel Movements 0 0 0 Vital Signs Vital Signs Date Time Temp Pulse Resp B/P Pulse Ox O2 Delivery O2 Flow Rate FiO2 09/12/16 04:00 100.5 98 20 124/90 99 09/12/16 00:00 98.4 77 20 109/80 98 09/11/16 20:30 77 09/11/16 20:00 98.9 89 20 109/70 100 09/11/16 16:00 101.4 100 20 106/71 98 09/11/16 12:00 98.4 81 20 103/72 99 09/11/16 11:42 97 97 CBC/BMP: 09/12/16 0510 09/12/16 0510 Lab Results Laboratory Tests Test 09/12/16 05:10 White Blood Count 8.1 TH/MM3 Red Blood Count 2.82 MIL/MM3 Hemoglobin 8.3 GM/DL Hematocrit 24.8 % Mean Corpuscular Volume 87.8 FL Mean Corpuscular Hemoglobin 29.5 PG Mean Corpuscular Hemoglobin 33.7 % Concent Red Cell Distribution Width 13.8 % Platelet Count 154 TH/MM3 Mean Platelet Volume 8.8 FL Neutrophils (%) (Auto) % Lymphocytes (%) (Auto) % Monocytes (%) (Auto) % Eosinophils (%) (Auto) % Basophils (%) (Auto) % Neutrophils # (Auto) TH/MM3 Lymphocytes # (Auto) TH/MM3 Monocytes # (Auto) TH/MM3 Eosinophils # (Auto) TH/MM3 Basophils # (Auto) TH/MM3 CBC Comment AUTO DIFF Differential Total Cells 100 Counted Neutrophils % (Manual) 73 % Band Neutrophils % 5 % Lymphocytes % 17 % Monocytes % 5 % Neutrophils # (Manual) 6.3 TH/MM3 Differential Comment FINAL DIFF MANUAL Platelet Estimate NORMAL Platelet Morphology Comment NORMAL Target Cells 3+ Sodium Level 140 MEQ/L Potassium Level 3.7 MEQ/L Chloride Level 110 MEQ/L Carbon Dioxide Level 22.4 MEQ/L Anion Gap 8 MEQ/L Blood Urea Nitrogen 14 MG/DL Creatinine 1.30 MG/DL Estimat Glomerular Filtration 54 ML/MIN Rate Random Glucose 78 MG/DL Calcium Level 7.4 MG/DL Protein Corrected Calcium 7.8 MG/DL Total Bilirubin 0.6 MG/DL Aspartate Amino Transf 37 U/L (AST/SGOT) Alanine Aminotransferase 41 U/L (ALT/SGPT) Alkaline Phosphatase 134 U/L Total Protein 6.4 GM/DL Albumin 1.9 GM/DL Physical Exam General General Appearance: No Acute Distress, Comfortable Eyes Eye Exam: Pupils Equal, Pupils Reactive, Sclera White, Extraocular Movement Intact Throat Throat Exam: Oral Mucosa [place] & Moist Neck Neck Exam: Neck Supple, Trachea Midline Pulmonary Resp Exam: Clear Bilaterally, Breath Sounds Equal, No Distress Cardiology CV Exam: Regular, Normal Sinus Rhythm Gastrointestinal/Abdomen GI Remarks diffuse abdominal tenderness. Musculoskeletal MS Exam: Normal Tone Integumentary Skin Exam: Clear, Warm, Dry, Intact, Normal Turgor Neurologic Neuro Exam: Alert, Awake, Oriented, Speech Clear, Moving All Extremities, No Focal Deficits VTE Prophylaxis VTE Prophylaxis Meds: Heparin PUD Prophylasis PUD Prophylaxis: Protonix Assessment/Plan Assessment/Plan ASSESSMENT/PLAN 1. This is a 45-year female who came to the ER diagnosed with abdominal pain most likely secondary to a urinary tract infection/high LFTs. The patient is on aztreonam for infection in the urine. Urine culture positive for E. Coli. 2. Leukocytosis secondary to urinary tract infection. 3. Anemia secondary to chronic medical condition and renal failure. 4. Hyponatremia. We will monitor sodium. 5. Renal failure / insufficiency. The patient is on IV fluid. We will monitor BUN, creatinine. Consult nephrology. 6. History of HIV. The patient is not taking the medicine regularly. The patient advised to take medicine regularly. 7. DVT prophylaxis with heparin 5000 units subcutaneous twice a day. 8. GI prophylaxis with Protonix 40 milligrams p.o. daily. 9. Sepsis on admission blood culture positive for E. Coli on Abx per ID Recommendation. We are going manage the patient on a daily basis and make recommendations on a daily basis. Discussed Condition with: Patient Boy Kay MD Sep 12, 2016 08:05
[2016-09-12] MEDS: PROPRANOLOL HCL 10 MG TAB PO SCH (09:00)
--- NOTE | 2016-09-12 09:15 | HHI.NPPN ---
Subjective Renal Failure: Acute Interval History Renal function is better. No acute complaints. tolerating po. (Chasity Rivers) Review of Systems General Constitutional: Fever (Chasity Rivers) Objective Data Data 09/11/16 09/12/16 19:00 07:00 Intake Total 800 ml 2370 ml Balance 800 ml 2370 ml Intake Oral 800 ml 720 ml IV Total 1650 ml # Voids 4 5 # Bowel Movements 0 0 Vital Signs Date Time Temp Pulse Resp B/P Pulse Ox O2 Delivery O2 Flow Rate FiO2 09/12/16 08:00 98.9 82 16 110/78 98 09/12/16 04:00 100.5 98 20 124/90 99 09/12/16 00:00 98.4 77 20 109/80 98 09/11/16 20:30 77 09/11/16 20:00 98.9 89 20 109/70 100 09/11/16 16:00 101.4 100 20 106/71 98 09/11/16 12:00 98.4 81 20 103/72 99 09/11/16 11:42 97 97 (Chasity Rivers) -: 09/12/16 0510 09/12/16 0510 Imaging Last 72 hours Impressions Abdomen/Pelvis CT 09/10/16 0000 Signed Impressions: Service Date/Time: Saturday, September 10, 2016 14:17 - CONCLUSION: 1. Mild hydronephrotic change in the right kidney with medullary nephrocalcinosis. There are inflammatory changes around the right kidney with prominence of the proximal ureter though no definite stone is seen within the ureter. Exam which suggest recent stone passage versus pyelonephritis. 2. Subtle medullary calcification of the left kidney. No definite stones seen within the left ureter. Daniel Douglas MD (Chasity Rivers) Physical Exam General Appearance: Well Developed, Well Nourished, No Acute Distress (Chasity Rivers) Throat Throat Exam: Oral Mucosa [place] & Moist (Chasity Rivers) Neck Neck Exam: Neck Supple (Chasity Rivers) Pulmonary Resp Exam: Clear Bilaterally, Breath Sounds Equal, No Distress (Chasity Rivers) Cardiology CV Exam: Regular, Normal Sinus Rhythm (Chasity Rivers) Gastrointestinal/Abdomen GI Exam: Soft, Non-Tender (Chasity Rivers) Musculoskeletal MS Exam: Joints Intact, Normal Gait, Normal Tone (Chasity Rivers) Integumentary Skin Exam: Clear, Warm, Dry (Chasity Rivers) Extremeties Extremities Exam: No Edema, Pedal Pulses Palpable (Chasity Rivers) Neurologic Neuro Exam: Alert, Awake, Oriented, Speech Clear, Moving All Extremities ( Chasity Rivers) Psychiatric Psych Exam: Appropriate Responses (Chasity Rivers) Assessment/Plan Discussed Condition With: Patient Problem List: (1) KARLI (acute kidney injury) Plan: In a pt with normal renal function at baseline years ago non oliguric renal failure KARLI likely prerenal from decreased renal perfusion secondary to sepsis; may have progressed to ATN renal function improving tolerating po, change fluids to 1/2 NS and taper off K is normal, acidosis correcting continue present plan avoid nephrotoxins daily renal panel, urine output measurement (2) Severe sepsis Plan: urosepsis with 4/4 bottles with GNR, urine culture similar BP acceptable, she is febrile with leukocytosis on rocephin, await sensitivities on IVF, monitor clinically (3) UTI (urinary tract infection) Plan: await cultures ID managing Antibiotic therapy, changed to Rocephin (4) HIV (human immunodeficiency virus infection) Plan: HAART restarted including Abacavir, Tivicay, and Epivir ID following Plan we anticipate continued improvement. taper off fluids. continue antibiotic management. avoid nephrotoxins. we will sign off; please reconsult us if necessary (Chasity Rivers) Plan patient's renal function has improved. We will sign off at this time. Thanks. ( Carlos Bowles MD) Problem Qualifiers (1) UTI (urinary tract infection): Chasity Rivers Sep 12, 2016 09:15 Carlos Bowles MD Sep 12, 2016 16:02
[2016-09-12] MEDS: CALCIUM/VITAMIN D 250 MG/125 U TAB PO SCH ×2 (09:19→20:32)
[2016-09-12] MEDS: ABACAVIR SULFATE 300 MG TAB PO SCH (09:19)
[2016-09-12] MEDS: FERROUS SULFATE 325 MG (65 MG ELEMENTAL IRON) TAB PO SCH (09:19)
[2016-09-12] MEDS: DOLUTEGRAVIR SODIUM 50 MG TAB PO SCH (09:19)
[2016-09-12] MEDS: SODIUM CHLORIDE 0.9% FLUSH 5 ML FLUSH FLUSH SCH ×2 (09:20→20:13)
[2016-09-12] MEDS: SODIUM CHLOR 0.45% 1000 ML INJ 1,000 ML IV SCH (10:00)
[2016-09-12] MEDS: cefTRIAXone 1,000 MG/NS 100 ML IV SCH ×2 (17:40)
[2016-09-12 18:06] LABS: BLOOD, URINE SMALL (NEG); GLUCOSE,URINE NEG (NEG); KETONE, URINE NEG (NEG); NITRITE,URINE NEG (NEG); PH, URINE 6.5 (5.0-8.5)
[2016-09-12 18:13] LABS: SQUAMOUS EPITHELIAL CELL URINE 0-5 /hpf (0-5); URINE COLOR YELLOW (YELLW/STRAW)
[2016-09-12 18:14] LABS: COMMENT (UR) CULT NOT INDICATED; CULTURE IF INDICATED CULT NOT INDICATED
[2016-09-13] VITALS (7 sets, daily range): BP systolic 111–145; BP diastolic 71–102; PULSE 73–87; RESP 16–18; TEMP 97.2–99.5; O2SAT 98–100
[2016-09-13] MEDS: HEPARIN SODIUM - SQ 10,000 UNITS/ML VIAL SQ SCH ×2 (04:03→17:00)
[2016-09-13] MEDS: SODIUM CHLOR 0.45% 1000 ML INJ 1,000 ML IV SCH (05:32)
[2016-09-13 07:10] LABS: HEMATOCRIT 27.1 % (35.0-46.0); MEAN CORPUSCULAR HEMOGLOBIN 29.1 PG (27.0-34.0); PLATELET COUNT 182 TH/MM3 (150-450); RED BLOOD COUNT 3.09 MIL/MM3 (4.00-5.30); RED CELL DISTRIBUTION WIDTH 13.5 % (11.6-17.2); WHITE BLOOD COUNT 6.4 TH/MM3 (4.0-11.0)
[2016-09-13 07:12] LABS: HEMO FLAGS AUTO DIFF
[2016-09-13 07:49] LABS: NEUTROPHIL # MANUAL DIFF 4.7 TH/MM3 (1.8-7.7); PLATELET ESTIMATE SMEAR NORMAL (NORMAL); PLATELET MORPHOLOGY NORMAL (NORMAL); POLYS (SEG NEUTROPHILS) 74 % (16-70); SCAN/DIFF FINAL DIFF MANUAL; WBC DIFF SAMPLE 100
[2016-09-13 08:16] LABS: CHLORIDE 108 MEQ/L (98-107); POTASSIUM 3.7 MEQ/L (3.5-5.1); SODIUM (NA) 139 MEQ/L (136-145)
[2016-09-13 08:20] LABS: ANION GAP 7 MEQ/L (5-15); BLOOD UREA NITROGEN 10 MG/DL (7-18)
[2016-09-13 08:23] LABS: ALT (GPT) 38 U/L (10-53); AST (GOT) 32 U/L (15-37); GLOMERULAR FILTRATION RATE 65 ML/MIN (>89)
[2016-09-13 08:25] LABS: TOTAL BILIRUBIN ADULT 0.4 MG/DL (0.2-1.0)
[2016-09-13 08:26] LABS: ALKALINE PHOSPHATASE 136 U/L (45-117)
--- NOTE | 2016-09-13 08:51 | HHI.PR ---
Subjective History of Present Illness Patient feel better no acute issue d/w KEISHA Patel.....ID Input noted. Review of Systems Constitutional Constitutional: Fatigue, Weakness Vitals/Results Intake & Output 09/12/16 09/12/16 09/13/16 15:00 23:00 07:00 Intake Total 760 ml 400 ml Balance 760 ml 400 ml Intake Oral 360 ml IV Total 400 ml 400 ml # Voids 2 Vital Signs Vital Signs Date Time Temp Pulse Resp B/P Pulse Ox O2 Delivery O2 Flow Rate FiO2 09/13/16 04:38 98.7 78 16 121/87 98 09/13/16 01:17 18 09/13/16 00:49 99.5 87 18 145/102 99 09/12/16 21:08 98.7 86 16 117/82 100 09/12/16 20:00 80 09/12/16 16:00 100.4 85 18 136/95 97 09/12/16 12:00 99.0 100 16 119/91 74 CBC/BMP: 09/13/16 0623 09/13/16 0756 Lab Results Laboratory Tests Test 09/12/16 09/13/16 09/13/16 17:50 06:23 07:56 Urine Color YELLOW Urine Turbidity CLEAR Urine pH 6.5 Urine Specific [place] 1.009 Urine Protein NEG mg/dL Urine Glucose (UA) NEG mg/dL Urine Ketones NEG mg/dL Urine Occult Blood SMALL Urine Nitrite NEG Urine Bilirubin NEG Urine Leukocyte Esterase NEG Urine RBC 4-9 /hpf Urine WBC 3-5 /hpf Urine Squamous Epithelial 0-5 /hpf Cells Urine Bacteria NONE /hpf Microscopic Urinalysis Comment CULT NOT INDICATED Urine Random Creatinine 58 MG/DL Urine Microalbumin/Creatinine 50 MG/G CRE Ratio White Blood Count 6.4 TH/MM3 Red Blood Count 3.09 MIL/MM3 Hemoglobin 9.0 GM/DL Hematocrit 27.1 % Mean Corpuscular Volume 88.0 FL Mean Corpuscular Hemoglobin 29.1 PG Mean Corpuscular Hemoglobin 33.0 % Concent Red Cell Distribution Width 13.5 % Platelet Count 182 TH/MM3 Mean Platelet Volume 9.7 FL Neutrophils (%) (Auto) % Lymphocytes (%) (Auto) % Monocytes (%) (Auto) % Eosinophils (%) (Auto) % Basophils (%) (Auto) % Neutrophils # (Auto) TH/MM3 Lymphocytes # (Auto) TH/MM3 Monocytes # (Auto) TH/MM3 Eosinophils # (Auto) TH/MM3 Basophils # (Auto) TH/MM3 CBC Comment AUTO DIFF Differential Total Cells 100 Counted Neutrophils % (Manual) 74 % Lymphocytes % 19 % Monocytes % 7 % Neutrophils # (Manual) 4.7 TH/MM3 Differential Comment FINAL DIFF MANUAL Platelet Estimate NORMAL Platelet Morphology Comment NORMAL Sodium Level 139 MEQ/L Potassium Level 3.7 MEQ/L Chloride Level 108 MEQ/L Carbon Dioxide Level 24.0 MEQ/L Anion Gap 7 MEQ/L Blood Urea Nitrogen 10 MG/DL Creatinine 1.10 MG/DL Estimat Glomerular Filtration 65 ML/MIN Rate Random Glucose 80 MG/DL Calcium Level 7.8 MG/DL Total Bilirubin 0.4 MG/DL Aspartate Amino Transf 32 U/L (AST/SGOT) Alanine Aminotransferase 38 U/L (ALT/SGPT) Alkaline Phosphatase 136 U/L Total Protein 7.0 GM/DL Albumin 2.1 GM/DL Microbiology Microbiology 09/13/16 Aerobic Blood Culture, Received Pending 09/13/16 Anaerobic Blood Culture, Received Pending Physical Exam General General Appearance: No Acute Distress, Comfortable Eyes Eye Exam: Pupils Equal, Pupils Reactive, Sclera White, Extraocular Movement Intact Throat Throat Exam: Oral Mucosa [place] & Moist Neck Neck Exam: Neck Supple, Trachea Midline Pulmonary Resp Exam: Clear Bilaterally, Breath Sounds Equal, No Distress Cardiology CV Exam: Regular, Normal Sinus Rhythm Gastrointestinal/Abdomen GI Exam: Soft, Bowel Sounds Present GI Remarks diffuse abdominal tenderness. Musculoskeletal MS Exam: Normal Tone Integumentary Skin Exam: Clear, Warm, Dry, Intact, Normal Turgor Extremeties Extremities Exam: No Edema, Pedal Pulses Palpable Neurologic Neuro Exam: Alert, Awake, Oriented, Speech Clear, Moving All Extremities, No Focal Deficits Psychiatric Psych Exam: Appropriate Responses VTE Prophylaxis VTE Prophylaxis Meds: Heparin PUD Prophylasis PUD Prophylaxis: Protonix Assessment/Plan Assessment/Plan ASSESSMENT/PLAN 1. This is a 45-year female who came to the ER diagnosed with abdominal pain most likely secondary to a urinary tract infection/high LFTs. The patient is on rocephin for infection in the urine. Urine culture positive for E. Coli. 2. Leukocytosis secondary to urinary tract infection. 3. Anemia secondary to chronic medical condition and renal failure. 4. Hyponatremia. resolved. 5. Renal failure / insufficiency. The patient is on IV fluid. We will monitor BUN, creatinine. nephrology input noted ..better.. 6. History of HIV. The patient is not taking the medicine regularly. The patient advised to take medicine regularly. 7. DVT prophylaxis with heparin 5000 units subcutaneous twice a day. 8. GI prophylaxis with Protonix 40 milligrams p.o. daily. 9. Sepsis on admission blood culture positive for E. Coli on Abx rocephen per ID Recommendation. We are going manage the patient on a daily basis and make recommendations on a daily basis. check CBC with diff CMP in am. Discussed Condition with: Patient Boy Kay MD Sep 13, 2016 08:51
[2016-09-13] MEDS: SODIUM CHLORIDE 0.9% FLUSH 5 ML FLUSH FLUSH SCH ×2 (09:00→20:13)
[2016-09-13] MEDS: FERROUS SULFATE 325 MG (65 MG ELEMENTAL IRON) TAB PO SCH (09:24)
[2016-09-13] MEDS: ABACAVIR SULFATE 300 MG TAB PO SCH (09:24)
[2016-09-13] MEDS: ACETAMINOPHEN 325 MG TAB PO PRN (09:24)
[2016-09-13] MEDS: PROPRANOLOL HCL 10 MG TAB PO SCH (09:25)
[2016-09-13] MEDS: DOLUTEGRAVIR SODIUM 50 MG TAB PO SCH (09:25)
[2016-09-13] MEDS: CALCIUM/VITAMIN D 250 MG/125 U TAB PO SCH ×2 (09:26→20:13)
--- NOTE | 2016-09-13 11:45 | HHI.IDPN ---
Subjective Subjective Remarks No fevers about 24 hrs Feels well No abdominal pain Antibiotics Ceftriaxone Lines Peripheral IV line Past Medical History HIV on HAART, diagnosed in 1990s anxiety depression Anemia Past Surgical History C section Allergies: Coded Allergies: Penicillin (Verified Allergy, Severe, Hives, 09/10/16) Sulfa (Verified Allergy, Severe, HIVES, 09/10/16) Vancomycin (Verified Allergy, Severe, Itching, 09/10/16) Review of Systems Constitutional Constitutional Remarks No more fevers GI/Abdomen GI/Abdomen Remarks NO N , V or D Objective . Vital Signs Date Time Temp Pulse Resp B/P Pulse Ox O2 Delivery O2 Flow Rate FiO2 09/13/16 08:00 98.5 73 16 137/85 98 09/13/16 04:38 98.7 78 16 121/87 98 09/13/16 01:17 18 09/13/16 00:49 99.5 87 18 145/102 99 09/12/16 21:08 98.7 86 16 117/82 100 09/12/16 20:00 80 09/12/16 16:00 100.4 85 18 136/95 97 09/12/16 12:00 99.0 100 16 119/91 74 09/12/16 09/12/16 09/13/16 15:00 23:00 07:00 Intake Total 760 ml 400 ml Balance 760 ml 400 ml Intake Oral 360 ml IV Total 400 ml 400 ml # Voids 2 . Laboratory Tests Test 09/12/16 09/13/16 05:10 06:23 White Blood Count 8.1 TH/MM3 6.4 TH/MM3 Red Blood Count 2.82 MIL/MM3 3.09 MIL/MM3 Hemoglobin 8.3 GM/DL 9.0 GM/DL Hematocrit 24.8 % 27.1 % Mean Corpuscular Volume 87.8 FL 88.0 FL Mean Corpuscular Hemoglobin 29.5 PG 29.1 PG Mean Corpuscular Hemoglobin 33.7 % 33.0 % Concent Red Cell Distribution Width 13.8 % 13.5 % Platelet Count 154 TH/MM3 182 TH/MM3 Mean Platelet Volume 8.8 FL 9.7 FL Neutrophils (%) (Auto) % % Lymphocytes (%) (Auto) % % Monocytes (%) (Auto) % % Eosinophils (%) (Auto) % % Basophils (%) (Auto) % % Neutrophils # (Auto) TH/MM3 TH/MM3 Lymphocytes # (Auto) TH/MM3 TH/MM3 Monocytes # (Auto) TH/MM3 TH/MM3 Eosinophils # (Auto) TH/MM3 TH/MM3 Basophils # (Auto) TH/MM3 TH/MM3 CBC Comment AUTO DIFF AUTO DIFF Differential Total Cells 100 100 Counted Neutrophils % (Manual) 73 % 74 % Band Neutrophils % 5 % Lymphocytes % 17 % 19 % Monocytes % 5 % 7 % Neutrophils # (Manual) 6.3 TH/MM3 4.7 TH/MM3 Differential Comment FINAL DIFF FINAL DIFF MANUAL MANUAL Platelet Estimate NORMAL NORMAL Platelet Morphology Comment NORMAL NORMAL Target Cells 3+ Laboratory Tests Test 09/12/16 09/13/16 05:10 07:56 Sodium Level 140 MEQ/L 139 MEQ/L Potassium Level 3.7 MEQ/L 3.7 MEQ/L Chloride Level 110 MEQ/L 108 MEQ/L Carbon Dioxide Level 22.4 MEQ/L 24.0 MEQ/L Anion Gap 8 MEQ/L 7 MEQ/L Blood Urea Nitrogen 14 MG/DL 10 MG/DL Creatinine 1.30 MG/DL 1.10 MG/DL Estimat Glomerular Filtration 54 ML/MIN 65 ML/MIN Rate Random Glucose 78 MG/DL 80 MG/DL Calcium Level 7.4 MG/DL 7.8 MG/DL Protein Corrected Calcium 7.8 MG/DL Total Bilirubin 0.6 MG/DL 0.4 MG/DL Aspartate Amino Transf 37 U/L 32 U/L (AST/SGOT) Alanine Aminotransferase 41 U/L 38 U/L (ALT/SGPT) Alkaline Phosphatase 134 U/L 136 U/L Total Protein 6.4 GM/DL 7.0 GM/DL Albumin 1.9 GM/DL 2.1 GM/DL Microbiology Date/Time Procedure Status Source Growth 09/10/16 12:15 Aerobic Blood Culture - Final Complete Blood Peripheral Escherichia Coli 09/10/16 12:15 Anaerobic Blood Culture - Final Complete Escherichia Coli 09/10/16 12:15 Aerobic Blood Culture - Final Complete Blood Peripheral Escherichia Coli 09/10/16 12:15 Anaerobic Blood Culture - Final Complete Escherichia Coli 09/10/16 14:35 Urine Culture - Final Complete Urine Clean Catch Escherichia Coli 09/13/16 07:56 Aerobic Blood Culture Received Blood Peripheral Pending 09/13/16 07:56 Anaerobic Blood Culture Received Blood Peripheral Pending Physical Exam GENERAL: This is patient, in no apparent distress. SKIN: No rashes, ecchymoses or lesions.Warm and dry. HEAD: Atraumatic. Normocephalic. No temporal or scalp tenderness. EYES: Pupils equal round and reactive. Extraocular motions intact. No scleral icterus. No injection or drainage. ENT: Nose without bleeding, purulent drainage or septal hematoma. Throat without erythema, tonsillar hypertrophy or exudate. Uvula midline. Airway patent. NECK: Trachea midline. No JVD or lymphadenopathy. Supple, nontender, no meningeal signs. CARDIOVASCULAR: Regular rate and rhythm without murmurs, gallops, or rubs. RESPIRATORY: Clear to auscultation. Breath sounds equal bilaterally. No wheezes , rales, or rhonchi. GASTROINTESTINAL: Abdomen soft, non-tender, nondistended. No hepato-splenomegaly , or palpable masses. No guarding. MUSCULOSKELETAL: Extremities without clubbing, cyanosis, or edema. No joint tenderness, effusion, or edema noted. No calf tenderness. Negative Homans sign bilaterally. NEUROLOGICAL: Awake and alert. Cranial nerves II through XII intact. Motor and sensory grossly within normal limits. Five out of 5 muscle strength in all muscle groups. Normal speech. Assessment & Plan Diagnosis: (1) UTI (urinary tract infection) (2) HIV (human immunodeficiency virus infection) Plan: on tivicay / ziagen / epivir - (3) KARLI (acute kidney injury) Plan: Improved (4) Bacteremia due to Escherichia coli Plan: Continue IV Ceftriaxone Follow repeat blood cultures to make sure she is clearing bacteremia If repeat blood cultures remain negative at 24-48 hrs - patient can be changed to Cefuroxime 500 mg po bid Problem Qualifiers (1) UTI (urinary tract infection): Miladis Gonzalez MD Sep 13, 2016 11:45
[2016-09-13] MEDS: cefTRIAXone 1,000 MG/NS 100 ML IV SCH ×2 (17:01)
[2016-09-14 00:23] VITALS: BP 134/91; PULSE 76; RESP 18; TEMP 97.7; O2SAT 99
[2016-09-14 04:00] VITALS: BP 136/91; PULSE 81; RESP 16; TEMP 98.9; O2SAT 99
[2016-09-14] MEDS: HEPARIN SODIUM - SQ 10,000 UNITS/ML VIAL SQ SCH ×2 (04:17→16:38)
[2016-09-14] MEDS: ACETAMINOPHEN 325 MG TAB PO PRN (04:20)
[2016-09-14 07:13] LABS: HEMATOCRIT 25.5 % (35.0-46.0); MEAN CELL VOLUME 88.3 FL (80.0-100.0); MEAN CORPUSCULAR HEMOGLOBIN 30.1 PG (27.0-34.0); MEAN CORPUSCULAR HGB CONC 34.1 % (32.0-36.0); PLATELET COUNT 229 TH/MM3 (150-450); RED BLOOD COUNT 2.89 MIL/MM3 (4.00-5.30); RED CELL DISTRIBUTION WIDTH 13.4 % (11.6-17.2); WHITE BLOOD COUNT 6.3 TH/MM3 (4.0-11.0)
[2016-09-14 07:23] LABS: CHLORIDE 106 MEQ/L (98-107); POTASSIUM 3.5 MEQ/L (3.5-5.1); SODIUM (NA) 139 MEQ/L (136-145)
[2016-09-14 07:24] LABS: HEMO FLAGS AUTO DIFF
[2016-09-14 07:27] LABS: ANION GAP 9 MEQ/L (5-15); BICARBONATE 23.9 MEQ/L (21.0-32.0); BLOOD UREA NITROGEN 11 MG/DL (7-18)
[2016-09-14 07:30] LABS: ALT (GPT) 41 U/L (10-53); AST (GOT) 48 U/L (15-37); GLOMERULAR FILTRATION RATE 59 ML/MIN (>89)
[2016-09-14 07:31] LABS: TOTAL BILIRUBIN ADULT 0.5 MG/DL (0.2-1.0)
[2016-09-14 07:33] LABS: ALKALINE PHOSPHATASE 143 U/L (45-117)
[2016-09-14 07:51] LABS: BANDS 1 % (0-6); NEUTROPHIL # MANUAL DIFF 4.8 TH/MM3 (1.8-7.7); POLYS (SEG NEUTROPHILS) 75 % (16-70); WBC DIFF SAMPLE 100
[2016-09-14 07:52] LABS: PLATELET ESTIMATE SMEAR NORMAL (NORMAL); PLATELET MORPHOLOGY NORMAL (NORMAL); SCAN/DIFF FINAL DIFF MANUAL
[2016-09-14 08:00] VITALS: BP 127/88; PULSE 67; PULSE 74; RESP 19; TEMP 98.2; O2SAT 95
[2016-09-14] MEDS: CALCIUM/VITAMIN D 250 MG/125 U TAB PO SCH ×2 (08:37→20:03)
[2016-09-14] MEDS: FERROUS SULFATE 325 MG (65 MG ELEMENTAL IRON) TAB PO SCH (08:37)
[2016-09-14] MEDS: DOLUTEGRAVIR SODIUM 50 MG TAB PO SCH (08:38)
[2016-09-14] MEDS: ABACAVIR SULFATE 300 MG TAB PO SCH (08:38)
[2016-09-14] MEDS: PROPRANOLOL HCL 10 MG TAB PO SCH (08:39)
[2016-09-14] MEDS: SODIUM CHLOR 0.45% 1000 ML INJ 1,000 ML IV SCH (08:40)
[2016-09-14] MEDS: SODIUM CHLORIDE 0.9% FLUSH 5 ML FLUSH FLUSH SCH ×2 (08:40→20:03)
--- NOTE | 2016-09-14 11:32 | HHI.PR ---
Subjective History of Present Illness Patient feel better no acute issue d/w RN Amanda.....ID Input noted. possible dc tomorrow.if ok with ID. Review of Systems Constitutional Constitutional: Fatigue, Weakness Vitals/Results Intake & Output 09/13/16 09/13/16 09/14/16 15:00 23:00 07:00 Intake Total 925 ml 2041 ml 387 ml Balance 925 ml 2041 ml 387 ml Intake Oral 925 ml IV Total 2041 ml 387 ml # Voids 6 1 # Bowel Movements 3 Vital Signs Vital Signs Date Time Temp Pulse Resp B/P Pulse Ox O2 Delivery O2 Flow Rate FiO2 09/14/16 08:00 98.2 67 19 127/88 95 09/14/16 04:00 98.9 81 16 136/91 99 09/14/16 00:23 97.7 76 18 134/91 99 09/13/16 21:18 99.1 84 16 120/86 98 09/13/16 20:14 86 09/13/16 16:00 99.2 82 16 111/71 98 09/13/16 12:00 97.2 81 18 135/87 100 CBC/BMP: 09/14/16 0613 09/14/16 0613 Lab Results Laboratory Tests Test 09/14/16 06:13 White Blood Count 6.3 TH/MM3 Red Blood Count 2.89 MIL/MM3 Hemoglobin 8.7 GM/DL Hematocrit 25.5 % Mean Corpuscular Volume 88.3 FL Mean Corpuscular Hemoglobin 30.1 PG Mean Corpuscular Hemoglobin 34.1 % Concent Red Cell Distribution Width 13.4 % Platelet Count 229 TH/MM3 Mean Platelet Volume 9.3 FL Neutrophils (%) (Auto) % Lymphocytes (%) (Auto) % Monocytes (%) (Auto) % Eosinophils (%) (Auto) % Basophils (%) (Auto) % Neutrophils # (Auto) TH/MM3 Lymphocytes # (Auto) TH/MM3 Monocytes # (Auto) TH/MM3 Eosinophils # (Auto) TH/MM3 Basophils # (Auto) TH/MM3 CBC Comment AUTO DIFF Differential Total Cells 100 Counted Neutrophils % (Manual) 75 % Band Neutrophils % 1 % Lymphocytes % 18 % Monocytes % 6 % Neutrophils # (Manual) 4.8 TH/MM3 Differential Comment FINAL DIFF MANUAL Platelet Estimate NORMAL Platelet Morphology Comment NORMAL Sodium Level 139 MEQ/L Potassium Level 3.5 MEQ/L Chloride Level 106 MEQ/L Carbon Dioxide Level 23.9 MEQ/L Anion Gap 9 MEQ/L Blood Urea Nitrogen 11 MG/DL Creatinine 1.20 MG/DL Estimat Glomerular Filtration 59 ML/MIN Rate Random Glucose 99 MG/DL Calcium Level 7.7 MG/DL Total Bilirubin 0.5 MG/DL Aspartate Amino Transf 48 U/L (AST/SGOT) Alanine Aminotransferase 41 U/L (ALT/SGPT) Alkaline Phosphatase 143 U/L Total Protein 7.0 GM/DL Albumin 2.0 GM/DL Physical Exam General General Appearance: No Acute Distress, Comfortable Eyes Eye Exam: Pupils Equal, Pupils Reactive, Sclera White, Extraocular Movement Intact Throat Throat Exam: Oral Mucosa [place] & Moist Neck Neck Exam: Neck Supple, Trachea Midline Pulmonary Resp Exam: Clear Bilaterally, Breath Sounds Equal, No Distress Cardiology CV Exam: Regular, Normal Sinus Rhythm Gastrointestinal/Abdomen GI Exam: Soft, Bowel Sounds Present GI Remarks diffuse abdominal tenderness. Musculoskeletal MS Exam: Normal Tone Integumentary Skin Exam: Clear, Warm, Dry, Intact, Normal Turgor Extremeties Extremities Exam: No Edema, Pedal Pulses Palpable Neurologic Neuro Exam: Alert, Awake, Oriented, Speech Clear, Moving All Extremities, No Focal Deficits Psychiatric Psych Exam: Appropriate Responses VTE Prophylaxis VTE Prophylaxis Meds: Heparin PUD Prophylasis PUD Prophylaxis: Protonix Assessment/Plan Assessment/Plan ASSESSMENT/PLAN 1. This is a 45-year female who came to the ER diagnosed with abdominal pain most likely secondary to a urinary tract infection/high LFTs. The patient is on rocephin for infection in the urine. Urine culture positive for E. Coli. ..repeat UA Better. 2. Leukocytosis secondary to urinary tract infection...resolved. 3. Anemia secondary to chronic medical condition and renal failure. 4. Hyponatremia. resolved. 5. Renal failure / insufficiency. The patient is on IV fluid. We will monitor BUN, creatinine. nephrology input noted ..better.. 6. History of HIV. The patient is not taking the medicine regularly. The patient advised to take medicine regularly. 7. DVT prophylaxis with heparin 5000 units subcutaneous twice a day. 8. GI prophylaxis with Protonix 40 milligrams p.o. daily. 9. Sepsis on admission blood culture positive for E. Coli on Abx rocephen per ID Recommendation...repeat blood culture negative so far. We are going manage the patient on a daily basis and make recommendations on a daily basis. check CBC with diff CMP in am. possible dc tomorrow.if ok with ID. Discussed Condition with: Patient Boy Kay MD Sep 14, 2016 11:32
[2016-09-14 16:00] VITALS: BP 122/79; PULSE 71; RESP 18; TEMP 99.1; O2SAT 96
[2016-09-14] MEDS: cefTRIAXone 1,000 MG/NS 100 ML IV SCH ×2 (16:39)
[2016-09-14 20:00] VITALS: PULSE 84
[2016-09-14 21:00] VITALS: BP 120/83; PULSE 94; RESP 18; TEMP 99.3; O2SAT 98
[2016-09-15] VITALS: BP 115/73; PULSE 89; RESP 16; TEMP 98.9; O2SAT 97
[2016-09-15 02:00] VITALS: BP 138/88; PULSE 81; RESP 16; TEMP 97.8; O2SAT 96
[2016-09-15 03:52] LABS: HIV RNA LOG COPIES 4.35 (())
[2016-09-15 04:00] VITALS: BP 138/88; PULSE 81; RESP 16; TEMP 97.8; O2SAT 96
[2016-09-15] MEDS: HEPARIN SODIUM - SQ 10,000 UNITS/ML VIAL SQ SCH (04:26)
[2016-09-15] MEDS: SODIUM CHLOR 0.45% 1000 ML INJ 1,000 ML IV SCH (04:26)
[2016-09-15 06:56] LABS: HEMATOCRIT 25.5 % (35.0-46.0); MEAN CELL VOLUME 88.1 FL (80.0-100.0); MEAN CORPUSCULAR HEMOGLOBIN 29.2 PG (27.0-34.0); MEAN CORPUSCULAR HGB CONC 33.1 % (32.0-36.0); PLATELET COUNT 282 TH/MM3 (150-450); RED CELL DISTRIBUTION WIDTH 13.5 % (11.6-17.2); WHITE BLOOD COUNT 5.9 TH/MM3 (4.0-11.0)
[2016-09-15 07:00] LABS: CHLORIDE 107 MEQ/L (98-107); HEMO FLAGS AUTO DIFF; POTASSIUM 3.7 MEQ/L (3.5-5.1); SODIUM (NA) 141 MEQ/L (136-145)
[2016-09-15 07:07] LABS: ANION GAP 8 MEQ/L (5-15); BICARBONATE 25.7 MEQ/L (21.0-32.0); BLOOD UREA NITROGEN 8 MG/DL (7-18)
[2016-09-15 07:10] LABS: ALT (GPT) 71 U/L (10-53)
[2016-09-15 07:16] LABS: ALKALINE PHOSPHATASE 156 U/L (45-117); AST (GOT) 113 U/L (15-37); GLOMERULAR FILTRATION RATE 73 ML/MIN (>89); TOTAL BILIRUBIN ADULT 0.4 MG/DL (0.2-1.0)
[2016-09-15 07:34] LABS: NEUTROPHIL # MANUAL DIFF 3.5 TH/MM3 (1.8-7.7); POLYS (SEG NEUTROPHILS) 59 % (16-70); WBC DIFF SAMPLE 100
[2016-09-15 07:35] LABS: TARGET CELLS 2+ (NORMAL)
[2016-09-15 07:36] LABS: PLATELET ESTIMATE SMEAR NORMAL (NORMAL); PLATELET MORPHOLOGY NORMAL (NORMAL); SCAN/DIFF FINAL DIFF MANUAL
--- NOTE | 2016-09-15 07:43 | HHI.IDPN ---
Subjective Subjective Remarks No fevers Feels well. No nausea, vomiting or diarrhea. No abdominal pain Antibiotics Ceftriaxone Lines Peripheral IV line Past Medical History HIV on HAART, diagnosed in anxiety depression Anemia Past Surgical History C section Allergies: Coded Allergies: Penicillin (Verified Allergy, Severe, Hives, 09/10/16) Sulfa (Verified Allergy, Severe, HIVES, 09/10/16) Vancomycin (Verified Allergy, Severe, Itching, 09/10/16) Review of Systems Constitutional Constitutional Remarks No more fevers GI/Abdomen GI/Abdomen Remarks NO N , V or D Objective . Vital Signs Date Time Temp Pulse Resp B/P Pulse Ox O2 Delivery O2 Flow Rate FiO2 09/15/16 04:00 97.8 81 16 138/88 96 09/15/16 00:00 98.9 89 16 115/73 97 09/14/16 21:00 99.3 94 18 120/83 98 09/14/16 20:00 84 09/14/16 16:00 99.1 71 18 122/79 96 09/14/16 08:00 98.2 67 19 127/88 95 09/14/16 08:00 74 09/14/16 09/14/16 09/15/16 15:00 23:00 07:00 Intake Total 560 ml 849 ml 373 ml Balance 560 ml 849 ml 373 ml Intake Oral 560 ml IV Total 849 ml 373 ml # Voids 1 2 # Bowel Movements 0 . Laboratory Tests Test 09/14/16 09/15/16 06:13 05:40 White Blood Count 6.3 TH/MM3 5.9 TH/MM3 Red Blood Count 2.89 MIL/MM3 2.90 MIL/MM3 Hemoglobin 8.7 GM/DL 8.5 GM/DL Hematocrit 25.5 % 25.5 % Mean Corpuscular Volume 88.3 FL 88.1 FL Mean Corpuscular Hemoglobin 30.1 PG 29.2 PG Mean Corpuscular Hemoglobin 34.1 % 33.1 % Concent Red Cell Distribution Width 13.4 % 13.5 % Platelet Count 229 TH/MM3 282 TH/MM3 Mean Platelet Volume 9.3 FL 9.1 FL Neutrophils (%) (Auto) % % Lymphocytes (%) (Auto) % % Monocytes (%) (Auto) % % Eosinophils (%) (Auto) % % Basophils (%) (Auto) % % Neutrophils # (Auto) TH/MM3 TH/MM3 Lymphocytes # (Auto) TH/MM3 TH/MM3 Monocytes # (Auto) TH/MM3 TH/MM3 Eosinophils # (Auto) TH/MM3 TH/MM3 Basophils # (Auto) TH/MM3 TH/MM3 CBC Comment AUTO DIFF AUTO DIFF Differential Total Cells 100 100 Counted Neutrophils % (Manual) 75 % 59 % Band Neutrophils % 1 % Lymphocytes % 18 % 30 % Monocytes % 6 % 11 % Neutrophils # (Manual) 4.8 TH/MM3 3.5 TH/MM3 Differential Comment FINAL DIFF FINAL DIFF MANUAL MANUAL Platelet Estimate NORMAL NORMAL Platelet Morphology Comment NORMAL NORMAL Target Cells 2+ Laboratory Tests Test 09/13/16 09/14/16 09/15/16 07:56 06:13 05:40 Sodium Level 139 MEQ/L 139 MEQ/L 141 MEQ/L Potassium Level 3.7 MEQ/L 3.5 MEQ/L 3.7 MEQ/L Chloride Level 108 MEQ/L 106 MEQ/L 107 MEQ/L Carbon Dioxide Level 24.0 MEQ/L 23.9 MEQ/L 25.7 MEQ/L Anion Gap 7 MEQ/L 9 MEQ/L 8 MEQ/L Blood Urea Nitrogen 10 MG/DL 11 MG/DL 8 MG/DL Creatinine 1.10 MG/DL 1.20 MG/DL 1.00 MG/DL Estimat Glomerular Filtration 65 ML/MIN 59 ML/MIN 73 ML/MIN Rate Random Glucose 80 MG/DL 99 MG/DL 85 MG/DL Calcium Level 7.8 MG/DL 7.7 MG/DL 8.1 MG/DL Total Bilirubin 0.4 MG/DL 0.5 MG/DL 0.4 MG/DL Aspartate Amino Transf 32 U/L 48 U/L 113 U/L (AST/SGOT) Alanine Aminotransferase 38 U/L 41 U/L 71 U/L (ALT/SGPT) Alkaline Phosphatase 136 U/L 143 U/L 156 U/L Total Protein 7.0 GM/DL 7.0 GM/DL 7.3 GM/DL Albumin 2.1 GM/DL 2.0 GM/DL 2.2 GM/DL Microbiology Date/Time Procedure Status Source Growth 09/13/16 07:56 Aerobic Blood Culture - Preliminary Resulted Blood Peripheral NO GROWTH IN 1 DAY 09/13/16 07:56 Anaerobic Blood Culture - Preliminary Resulted Blood Peripheral NO GROWTH IN 1 DAY Physical Exam GENERAL: This is patient, in no apparent distress. SKIN: No rashes, ecchymoses or lesions.Warm and dry. HEAD: Atraumatic. Normocephalic. No temporal or scalp tenderness. EYES: Pupils equal round and reactive. Extraocular motions intact. No scleral icterus. No injection or drainage. ENT: Nose without bleeding, purulent drainage or septal hematoma. Throat without erythema, tonsillar hypertrophy or exudate. Uvula midline. Airway patent. NECK: Trachea midline. No JVD or lymphadenopathy. Supple, nontender, no meningeal signs. CARDIOVASCULAR: Regular rate and rhythm without murmurs, gallops, or rubs. RESPIRATORY: Clear to auscultation. Breath sounds equal bilaterally. No wheezes , rales, or rhonchi. GASTROINTESTINAL: Abdomen soft, non-tender, nondistended. No hepato-splenomegaly , or palpable masses. No guarding. MUSCULOSKELETAL: Extremities without clubbing, cyanosis, or edema. No joint tenderness, effusion, or edema noted. No calf tenderness. Negative Homans sign bilaterally. NEUROLOGICAL: Awake and alert. Cranial nerves II through XII intact. Motor and sensory grossly within normal limits. Five out of 5 muscle strength in all muscle groups. Normal speech. Assessment & Plan Diagnosis: (1) UTI (urinary tract infection) (2) HIV (human immunodeficiency virus infection) Plan: on tivicay / ziagen / epivir - (3) KARLI (acute kidney injury) Plan: Improved (4) Bacteremia due to Escherichia coli Plan: Stop IV Ceftriaxone Repeat blood cultures are negative Start Cefuroxime 500 mg po bid- to be taken another 10 days Her HIV meds can be Triumeq 1 po daily on discharge ( Combination pill of Abacavir, Lamivudine and Dolutegravir) Problem Qualifiers (1) UTI (urinary tract infection): Miladis Gonzalez MD Sep 15, 2016 07:43
[2016-09-15 08:00] VITALS: BP 141/99; PULSE 76; RESP 16; TEMP 97.7; O2SAT 94
[2016-09-15] MEDS: DOLUTEGRAVIR SODIUM 50 MG TAB PO SCH (08:42)
[2016-09-15] MEDS: FERROUS SULFATE 325 MG (65 MG ELEMENTAL IRON) TAB PO SCH (08:42)
[2016-09-15] MEDS: CALCIUM/VITAMIN D 250 MG/125 U TAB PO SCH (08:44)
[2016-09-15] MEDS: SODIUM CHLORIDE 0.9% FLUSH 5 ML FLUSH FLUSH SCH (08:45)
[2016-09-15] MEDS ORDERED: CEFU1TAB20 PO (08:45)
[2016-09-15] MEDS ORDERED: ABAC1TAB3 PO (08:45)
[2016-09-15] MEDS: PROPRANOLOL HCL 10 MG TAB PO SCH (08:45)
[2016-09-15] MEDS: ABACAVIR SULFATE 300 MG TAB PO SCH (08:46)
--- NOTE | 2016-09-16 08:34 | EC ---
Study Study Date:09/12/2016 STUDY CONCLUSIONS SUMMARY - Left ventricle: The cavity size was normal. Wall thickness was normal. Systolic function was normal. The estimated ejection fraction was in the range of 55% to 60%. Wall motion was normal; there were no regional wall motion abnormalities. - Aortic valve: Valve area: 1.67cm^2(VTI). Valve area: 1.68cm^2 (Vmax). - Mitral valve: There was a vegetation. There is a 1 mm mobile denisty on the medial leaflet. As well there is thickening in general, and another mobile density in the MV apparatus. Mild regurgitation. - Tricuspid valve: Mild-moderate regurgitation. - Pulmonary arteries: PA peak pressure: 39mm Hg (S). If LV function is below 40, please consider prescribing an ACEI or ARB or document rationale for non-use. PROCEDURE DATA STUDY STATUS: Elective. Procedure: Transthoracic echocardiography. Image quality was good. Scanning was performed from the parasternal, apical, and subcostal acoustic windows. Study completion: The patient tolerated the procedure well. Transthoracic echocardiography. M-mode, complete 2D, complete spectral Doppler, and color Doppler. Height: Height: 62in. Weight: Weight: 107.8lb. Body mass index: BMI: 19.8kg/m^2. Body surface area: BSA: 1.47m^2. Patient status: Inpatient. CARDIAC ANATOMY LEFT VENTRICLE: The cavity size was normal. Wall thickness was normal. Systolic function was normal. The estimated ejection fraction was in the range of 55% to 60%. Wall motion was normal; there were no regional wall motion abnormalities. AORTIC VALVE: Trileaflet; normal thickness leaflets. Doppler: Transvalvular velocity was within the normal range. There was no stenosis. No regurgitation. Valve area: 1.67cm^2(VTI). Indexed valve area: 1.14cm^2/m^2 (VTI). Valve area: 1.68cm^2 (Vmax). Indexed valve area: 1.14cm^2/m^2 (Vmax). Mean gradient: 6mm Hg (S). AORTA: Aortic root: The aortic root was normal in size. MITRAL VALVE: Well visualized. Mildly thickened leaflets, . There was a vegetation. There is a 1 mm mobile denisty on the medial leaflet. As well there is thickening in general, and another mobile density in the MV apparatus. Doppler: Transvalvular velocity was within the normal range. There was no evidence for stenosis. Mild regurgitation. Peak gradient: 2mm Hg (D). LEFT ATRIUM: The atrium was normal in size. RIGHT VENTRICLE: The cavity size was normal. Wall thickness was normal. PULMONIC VALVE: Doppler: Transvalvular velocity was within the normal range. There was no evidence for stenosis. No regurgitation. TRICUSPID VALVE: Structurally normal valve. Doppler: Transvalvular velocity was within the normal range. Mild-moderate regurgitation. PULMONARY ARTERY: The main pulmonary artery was normal-sized. Systolic pressure was within the normal range. RIGHT ATRIUM: The atrium was normal in size. PERICARDIUM: There was no pericardial effusion. SYSTEMIC VEINS: Inferior vena cava: The vessel was normal in size. Patient weight: 107.8lb _Ejection fraction:_ 65-75% _Fractional shortening:_ 32% up to 5Kg 5-11.5Kg 11.6-22.9Kg 23-45Kg 45-57Kg Aortic Root 7-13 <17 13-22 17-27 17-27 LA diam 6-13 <23 24-38 33-47 37-40 RVID 10-17 7-15 7-15 7-18 8-17 LVIDd 12-22 <32 24-38 33-47 37-40 LVPW 2-4 3-6 5-7 6-8 7-8 IVS 2-4 3-6 5-7 6-8 7-8 BASIC MEASUREMENTS ADULT NORMAL Left ventricle LV internal dimension, ED, chordal *42.5 mm 43-52 level, PLAX LV internal dimension, ES, chordal 28.2 mm 23-38 level, PLAX Fractional shortening, chordal level, 34 % >29 PLAX LV posterior wall thickness, ED 6.74 mm IVS/LVPW ratio, ED 0.94 <1.3 Ventricular septum Septal thickness, ED 6.31 mm Aortic valve Leaflet separation 19 mm 15-26 Aorta Root diameter, ED 26 mm Left atrium Anterior-posterior dimension 24 mm Anterior-posterior dimension index 1.63 cm/m^2 <2.2 BASIC MEASUREMENTS ADULT NORMAL Aortic valve Leaflet separation 19 mm 15-26 DOPPLER MEASUREMENTS ADULT NORMAL Main pulmonary artery Pressure, S *39 mm Hg =30 Aortic valve Peak velocity, S 156 cm/s Mean velocity, S 113 cm/s VTI, S 27.1 cm Mean gradient, S 6 mm Hg Valve area, VTI 1.67 cm^2 Valve area index, VTI 1.14 cm^2/m^2 Valve area, Vmax 1.68 cm^2 Valve area index, Vmax 1.14 cm^2/m^2 Mitral valve Peak E-wave velocity 76.5 cm/s Peak A-wave velocity 41.5 cm/s Deceleration time 229 ms 150-230 Peak gradient, D 2 mm Hg Peak E/A ratio 1.8 Tricuspid valve Regurgitant peak velocity 282 cm/s Peak RV-RA gradient, S 32 mm Hg Maximal regurgitant velocity 282 cm/s Systemic veins Estimated CVP 10 mm Hg Right ventricle RV pressure, S *42 mm Hg <30 Pulmonic valve Peak velocity, S 80.5 cm/s LEGEND: Mean values are shown as u=mean value. Asterisk (*) bello values outside specified normal range. Prepared and signed by Nae Morales [id number]
[2016-09-16 22:58] LABS: ABACAVIR SUSC (()); ATAZANAVIR WITH RITONAVIR SUSC (()); DARUNAVIR WITH RITONAVIR SUSC (()); DIDANOSINE SUSC (()); EFAVIRENZ RESIST (()); EMTRICITABINE SUSC (()); ETRAVIRINE PR (()); FOSAMPRENAVIR WITH RITONAVIR SUSC (()); HIV-1 GENOTYPING INTERP (()); INDINAVIR WITH RITONAVIR SUSC (()); LAMIVUDINE SUSC (()); LOPINAVIR WITH RITONAVIR SUSC (()); NELFINAVIR SUSC (()); NEVIRAPINE RESIST (()); NUCLEOSTIDE RT MUTATIONS K219N (()); RILPIVIRINE PR (()); SAQUINAVIR WITH RITONAVIR SUSC (()); STAVUDINE SUSC (()); TENOFOVIR SUSC (()); TIPRANAVIR WITH RITONAVIR SUSC (()); ZIDOVUDINE SUSC (())
--- NOTE | 2016-10-16 08:37 | MD ---
cc: BOY BROOKS MD ADMISSION DATE: 09/10/2016 DISCHARGE DATE: 09/15/2016 Okay to discharge the patient home. CONDITION AT THE TIME OF DISCHARGE Satisfactory. ACTIVITY As tolerated. DIET Cardiac diet. ALLERGIES PENICILLIN, SULFA, VANCOMYCIN. MEDICATIONS Includes: 1. Triumeq 600/50/300 p.o. daily. 2. Ceftin 500 mg twice a day. 3. Calcium carbonate with vitamin D 600/400 units p.o. b.i.d. 4. Ferrous sulfate 325 mg p.o. daily. 5. Propranolol 10 mg p.o. daily. 6. Triumeq one p.o. b.i.d. The patient was advised to follow up with PCP and infectious disease in one week. ADMISSION DIAGNOSIS 1. Abdominal pain secondary to urinary tract infection and high LFTs. The patient is on Rocephin. The patient's urine culture grew E-coli. Repeat urine analysis was much improved. 2. Leukocytosis secondary to urinary tract infection which has resolved. 3. Anemia secondary to chronic medical condition and renal disease. 4. Hyponatremia which was resolved. 5. Renal failure which is improved. 6. Sepsis on admission, blood culture positive for E-coli; antibiotic Rocephin. Infectious disease seen the patient. Repeat blood culture was negative. The patient had a echocardiogram done which was read by Dr. Morales. The patient remained stable. No acute event happened and she was discharged in satisfactory condition. Further detail in the medical record. Boy Brooks MD EA/MANFRED /1:51 AM /8:24 AM
== END 2016-09-15 11:35 | disposition home or self-care (01) | DRG 872 ==
LOC: PHED 11:32 → PHEDA 15:09 → PH3A 16:44
PROVIDERS: ADMIT Family Medicine; ATTEND Family Medicine
DX: A41.9 Sepsis, unspecified organism (principal); E87.2 Acidosis; N17.9 Acute kidney failure, unspecified; E87.1 Hypo-osmolality and hyponatremia; N12 Tubulo-interstitial nephritis, not specified as acute or chronic; N39.0 Urinary tract infection, site not specified; R65.20 Severe sepsis without septic shock; B96.20 Unspecified Escherichia coli [E. coli] as the cause of diseases classified elsewhere; D64.9 Anemia, unspecified; Z21 Asymptomatic human immunodeficiency virus [HIV] infection status; Z72.0 Tobacco use; Z91.19 Patient's noncompliance with other medical treatment and regimen
CPT/HCPCS: 74176; 80053; 80074; 81001; 82043; 83605; 83690; 84703; 85007; 85025; 85027; 85610; 85730; 87040; 87077; 87086; 87186; 87205; 87536; 87901; 93306; 96361; 96365; 96375; J0696; J1200; J1644; J1885; J2405; J3370; J7030; J7050